=== PATIENT | female | born 1950 | race Caucasian/White ===

== ENCOUNTER 2017-05-05 11:11 | Day surgery (SDC) | payer MEDICARE, OTHER ==
[~2017-05-05 11:11] MED LIST: BUPIVACAINE HCL 0.75% INJ/PF (7.5 MG/1 ML) 10 ML SDV OD PRN; CHONDR SU A NA/HYALUR INTRAOC KIT (SURGICARE) ONE; KETOROLAC TROMETHAMINE 0.45% 4 DROP/0.4 ML DROPERETTE OD PRN; LIDOCAINE 1% INJ-PF (10 MG/ML) 30 ML SDV ONE; LIDOCAINE 4% INJ/PF (40 MG/ML) 5 ML AMPUL OD PRN; PHENYLEPHRINE/KETOROLAC 1%-0.3% 4 ML VIAL ONE
[2017-05-05] MEDS: TROPICAMIDE 1% OPH SOLN 3 ML OD PRN ×3 (11:39→12:03)
[2017-05-05] MEDS: CYCLOPENTOLATE 0.2%/PHENYLEPHRINE 1% OPH SOLN 2 ML OD PRN ×3 (11:39→12:03)
[2017-05-05] MEDS: BESIFLOXACIN HCL 0.6% OPH SUSP 5 ML BOTTLE OD PRN ×4 (11:41→12:36)
[2017-05-05] MEDS: TETRACAINE HCL 0.5% OPH SOLN 0.6 ML DROPERETTE OD PRN ×2 (11:41→12:04)
[2017-05-05] MEDS ORDERED: MIDAZOLAM 2 MG/2 ML INJ ONE (11:45)
--- NOTE | 2017-05-05 13:23 | [facility] OPERATIVE REPORT E ---
[facility] Operative Report NAME: ASPEN BAUGH AGE: 67Y DATE OF SURGERY: 05/05/2017 ROOM: PREOPERATIVE DIAGNOSIS: Cataract, right eye. POSTOPERATIVE DIAGNOSIS: Cataract, right eye. PROCEDURE PERFORMED: Phacoemulsification with posterior chamber intraocular lens, right eye. SURGEON: Ashley Bledsoe MD ANESTHESIA: Topical with MAC; 0.6 mL of 1% non-preserved lidocaine was injected in the eye following the incision. INDICATIONS FOR SURGERY: Status post vitrectomy surgery with rapid progression of cataracts and poor vision. Best corrected visual acuity 20/400. PROCEDURE: The patient was brought to the operating room and placed on the operative table. Following tetracaine drops, topical anesthesia was administered. This consisted of instrument wipe pledgets soaked in a solution of 4% Xylocaine mixed with 0.75% Marcaine in a 1:2 ratio. A 2 x 1 cm pledget was placed in the superior fornix. A 1 x 1 cm pledget was placed in the inferior fornix. The eye was patched shut for 5 minutes. The patch was removed. The eye was sterilely prepped and draped in the usual manner. Lid speculum was placed in the eye. The pledgets were removed. 4-0 black silk sutures were placed around the superior and the inferior rectus muscles to be used as traction. A conjunctival peritomy was made at the 10 o'clock position. Hemostasis was obtained with bipolar cautery. A posterior limbal groove was created using a crescent knife and dissected anteriorly towards the cornea. A sharp point blade was used to create a paracentesis site at the 2 o'clock position. A 2.4 mm keratome was used to enter the anterior chamber through the groove. Viscoelastic was injected into the anterior chamber. An anterior capsulotomy was performed using Utrata forceps in a capsulorrhexis fashion. Hydrodissection and hydrodelineation were performed. Phacoemulsification was performed in [id number] technique. Total phaco time 1 minute 2 seconds. Following this, the I/A unit was used to remove residual cortex. Viscoelastic was injected into the capsular bag. Intraocular lens model SN60WF, 13.5 diopters, serial number [id number] was placed in the capsular bag. The I/A unit was used to remove residual viscoelastic. The wound was seen to be watertight under high and low pressure, and no sutures were placed. The intraocular lens was well centered. The pressure was adjusted in the eye to normal pressure. The 4-0 black silk sutures and lid speculum were removed. The eye was shielded after Besivance drops were placed. The patient tolerated the procedure well and was sent to the recovery room in good condition. DICTATING PHYSICIAN: ASHLEY BLEDSOE M.D. [id number] PHY#: [id number] ID: [id number] JOB#: [id number] ACCT: [id number] cc:ASHLEY BLEDSOE M.D. >
--- NOTE | 2017-05-05 13:25 | [facility] DISCHARGE SUMMARY E ---
[facility] Discharge Summary NAME: ASPEN BAUGH AGE: 67Y ADMITTED: 05/05/2017 DISCHARGED: 05/05/2017 PREOPERATIVE DIAGNOSIS: Cataract, right eye. POSTOPERATIVE DIAGNOSIS: Cataract, right eye. HOSPITAL COURSE: The patient is a 67-year-old lady who underwent uneventful cataract extraction with intraocular lens implant, right eye, on 05/05/2017. She will be discharged to home. She was instructed to resume preoperative medications, take Tylenol as needed for discomfort, to keep her eye shielded, to use Besivance, Durezol, and Ilevro at 3 p.m. and 8 p.m., and to followup in my office in 1 day. DICTATING PHYSICIAN: ERIN BLEDSOE M.D. [id number] PHY#: [id number] ID: [id number] JOB#: [id number] ACCT: [id number] cc:ERIN BLEDSOE M.D. >
== END 2017-05-05 13:27 | disposition home or self-care (01) ==
LOC: SC 11:11
PROVIDERS: ATTEND Ophthalmology
PROC: 08RJ3JZ Replacement of Right Lens with Synthetic Substitute, Percutaneous Approach (ICD-10-PCS; principal; 2017-05-05 12:30)
DX: H25.811 Combined forms of age-related cataract, right eye (principal); F17.210 Nicotine dependence, cigarettes, uncomplicated; H57.03 Miosis; E11.9 Type 2 diabetes mellitus without complications; I10 Essential (primary) hypertension; Z79.82 Long term (current) use of aspirin; Z79.899 Other long term (current) drug therapy; Z85.3 Personal history of malignant neoplasm of breast
CPT/HCPCS: 66984; 82962; V2632; J2250; J3490 ×4; A9270; C9447; 142

== ENCOUNTER → 2018-03-02 | Outpatient (CLI) | payer MEDICARE, OTHER ==
--- NOTE | 2018-03-02 15:36 | RADIOLOGY REPORT (SQ) ---
EXAM DESCRIPTION: BARIUM ENEMA W/AIR COMPLETED DATE/TIME: 03/02/2018 11:10 am REASON FOR STUDY: STRICTURE OF COLON (K56.699) K56.699 OTHER INTESTNL OBST UNSP TO PARTIAL VERSU S COMPLE COMPARISON: CT ABDOMEN PELVIS 02/21/2010 FLUOROSCOPY TIME: 2.2 MINUTES 17 fluoroscopy images saved to PACS. TECHNIQUE: Following retrograde filling of the colon with barium and air, fluoroscopic spot and over head imaging of the colon was obtained and saved to PACS. LIMITATIONS: None. 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 CECUM: A few diverticula otherwise, normal mucosa without intraluminal filling defects, intrinsic or extrinsic masses, or lesions. ASCENDING COLON: A few diverticula otherwise, normal mucosa without intraluminal filling defects, int rinsic or extrinsic masses, or lesions. TRANSVERSE COLON: A few diverticula otherwise, normal mucosa without intraluminal filling defects, in trinsic or extrinsic masses, or lesions. DESCENDING COLON: Several diverticula otherwise, normal mucosa without intraluminal filling defects, intrinsic or extrinsic masses, or lesions. SIGMOID COLON: Marked diverticula with mild luminal narrowing. No delay in retrograde filling. No d efinite intraluminal filling defects, intrinsic or extrinsic masses, or lesions. RECTUM: Normal mucosa without intraluminal filling defects, intrinsic or extrinsic masses, or lesions . POST EVAC: Partial evacuation of barium with no additional findings. OTHER: No other significant finding. IMPRESSION: 1. MARKED DIVERTICULOSIS IN THE SIGMOID WITH MILD LUMINAL NARROWING. NO DELAY IN RETRO GRADE FILLING. 2. SCATTERED DIVERTICULOSIS THROUGHOUT REMAINING COLON. 3. NO LESIONS OR POLYPS. COMMENT: Quality ID [id number]: Final reports for procedures using fluoroscopy that document radiation exp osure indices, or exposure time and number of fluorographic images (if radiation exposure indices are not available) TECHNICAL DOCUMENTATION: JOB ID: [id number] 1943 [employer]- All Rights Reserved Reading location - IP/workstation name: [email or web address]
== END ==
LOC: RAD 09:35
PROVIDERS: ATTEND Internal Medicine Gastroenterology
DX: K56.699 Other intestinal obstruction unspecified as to partial versus complete obstruction (principal); K57.30 Diverticulosis of large intestine without perforation or abscess without bleeding
CPT/HCPCS: 74280

== ENCOUNTER → 2018-07-21 | Outpatient (CLI) | payer MEDICARE, OTHER ==
[2018-07-21 18:27] LABS: ABSOLUTE BASOPHILS # (AUTO) 0.1 10^3/uL (0.0-0.2); ABSOLUTE EOSINOPHILS # (AUTO) 0.3 10^3/uL (0.0-0.6); ABSOLUTE LYMPHOCYTES (AUTO) 1.7 10^3/uL (0.5-4.7); ABSOLUTE MONOCYTES (AUTO) 1.3 10^3/uL (0.1-1.4); ABSOLUTE NEUT (AUTO) 10.7 10^3/uL (1.7-8.2); ABSOLUTE RETICS # 0.095 10^6/uL (0.028-0.122); BASOPHILS % (AUTO) 0.4 % (0-2); EOSINOPHILS % (AUTO) 1.8 % (0-6); HEMATOCRIT 32.8 % (36.0-47.0); HEMOGLOBIN 10.9 g/dL (12.0-15.5); LYMPHOCYTES % (AUTO) 12.4 % (13-45); MEAN CORPUSCULAR HEMOGLOBIN 27.9 pg (27.0-33.4); MEAN CORPUSCULAR HGB CONC 33.2 g/dL (32.0-36.0); MEAN CORPUSCULAR VOLUME 84 fl (80-97); PLATELET COUNT 293 10^3/uL (150-450); RED CELL DISTRIBUTION WIDTH 14.7 % (11.5-14.0); RETICULOCYTE COUNT (AUTO) 2.44 % (0.66-2.85); SEGMENTED NEUTROPHILS % (AUTO) 76.4 % (42-78); TOTAL CELLS COUNTED % (AUTO) 100 %
[2018-07-21 19:05] LABS: ERYTHROCYTE SEDIMENTATION RATE 65 mm/hr (0-30)
[2018-07-21 19:15] LABS: C-REACTIVE PROTEIN 159.4 mg/L (<10.0)
[2018-07-21 19:38] LABS: ALANINE AMINOTRANSFERASE 155 U/L (9-52); ALBUMIN 3.3 g/dL (3.5-5.0); ALKALINE PHOSPHATASE 269 U/L (38-126); ANION GAP 12 (5-19); ASPARTATE AMINO TRANSFERASE 135 U/L (14-36); BILIRUBIN,DIRECT 1.8 mg/dL (0.0-0.4); BILIRUBIN,TOTAL 2.1 mg/dL (0.2-1.3); BLOOD UREA NITROGEN 14 mg/dL (7-20); CALCIUM 10.1 mg/dL (8.4-10.2); CARBON DIOXIDE 25 mmol/L (22-30); CHLORIDE 102 mmol/L (98-107); GAMMA-GLUTAMYL TRANSFERASE 777 U/L (8-78); GLUCOSE 192 mg/dL (75-110); IRON(TIBC) 31.9 ug/dL (37-170); POTASSIUM 4.1 mmol/L (3.6-5.0); SODIUM 138.5 mmol/L (137-145); TOTAL PROTEIN 6.4 g/dL (6.3-8.2)
[2018-07-21 20:36] LABS: CREATINE KINASE < 20 U/L (30-135)
[2018-07-23 11:40] LABS: HEPATITIS A AB IGM Negative (Negative); HEPATITIS B CORE AB IGM Negative (Negative); HEPATITS B SURFACE ANTIGEN Negative (Negative)
[2018-07-23 15:33] LABS: HEPATITIS C VIRUS ANTIBODY <0.1 s/co ratio (0.0-0.9)
== END ==
LOC: LAB 17:40
PROVIDERS: ATTEND Family Medicine
DX: E83.42 Hypomagnesemia (principal); D72.829 Elevated white blood cell count, unspecified; R94.5 Abnormal results of liver function studies; D64.9 Anemia, unspecified
CPT/HCPCS: 36415; 80053; 80074; 82550; 82607; 82728; 82746; 82977; 83540; 83550; 83735; 84443; 84466; 85025; 85045; 85652; 86140

== ENCOUNTER → 2018-07-21 | Outpatient (CLI) | payer MEDICARE, OTHER ==
--- NOTE | 2018-07-21 19:56 | RADIOLOGY REPORT (SQ) ---
EXAM DESCRIPTION: CT ABD/PELVIS WITH IV ORAL COMPLETED DATE/TIME: 07/21/2018 7:25 pm REASON FOR STUDY: R10.9 UNSPECIFIED ABDOMINAL PAIN R10.9 UNSPECIFIED ABDOMINAL PAIN COMPARISON: None. TECHNIQUE: CT scan of the abdomen and pelvis performed using helical scanning technique with dynamic intravenous contrast injection. Oral contrast. Images reviewed with lung, soft tissue, and bone win dows. Reconstructed coronal and sagittal MPR images reviewed. Delayed images for evaluation of the ur inary system also acquired. All images stored on PACS. All CT scanners at this facility use dose modulation, iterative reconstruction, and/or weight based d osing when appropriate to reduce radiation dose to as low as reasonably achievable (ALARA). [facility]: Dose Right [facility]: CareDose [facility]: Dose Right [facility]: Teradose 4D [facility]: Scaffold CONTRAST TYPE AND DOSE: contrast/concentration: Isovue 350.00 mg/ml; Total Contrast Delivered: 99.0 ml; Total Saline Delivered: 60.0 ml RENAL FUNCTION: BUN 30 creatinine 0.4 RADIATION DOSE: CT Rad equipment meets quality standard of care and radiation dose reduction techniq ues were employed. CTDIvol: 13.2 - 17.2 mGy. DLP: 1631 mGy-cm.. LIMITATIONS: None. FINDINGS: LOWER CHEST: No significant findings. No nodules or infiltrates. LIVER: Low-density lesions are present in the liver that are too numerous to count. SPLEEN: Normal size. No focal lesions. PANCREAS: There is a 37 mm somewhat thick-walled cystic lesion associated with the tail of the pancre as. GALLBLADDER: Contracted. No stones are seen. ADRENAL GLANDS: No significant masses or asymmetry. RIGHT KIDNEY AND URETER: No solid masses. Nonobstructing lower calyceal calculus. No hydronephros is or hydroureter. LEFT KIDNEY AND URETER: No solid masses. No significant calcifications. No hydronephrosis or hydr oureter. AORTA AND VESSELS: No aneurysm. No dissection. Renal arteries, SMA, celiac without stenosis. RETROPERITONEUM: No retroperitoneal adenopathy, hemorrhage or masses. BOWEL AND PERITONEAL CAVITY: Extensive sigmoid diverticulosis with no acute inflammation. APPENDIX: Normal. PELVIS: Calcified uterine fibroids. Urinary bladder is normal. ABDOMINAL WALL: No masses. No hernias. BONES: No significant or acute findings. OTHER: No other significant finding. IMPRESSION: 1. Metastatic disease in the liver. 2. There is a 37 mm somewhat thick-walled cystic lesion associated with the tail of the pancreas. C oncerning for neoplasm. 3. Diverticulosis coli. 4. Other findings as described. TECHNICAL DOCUMENTATION: JOB ID: [id number] Quality ID # [id number]: Final reports with documentation of one or more dose reduction techniques (e.g., Au tomated exposure control, adjustment of the mA and/or kV according to patient size, use of iterative reconstruction technique) 2010 [employer]- All Rights Reserved Reading location - IP/workstation name: [email or web address]
== END ==
LOC: RAD 19:13
PROVIDERS: ATTEND Family Medicine
DX: K57.30 Diverticulosis of large intestine without perforation or abscess without bleeding (principal); D25.9 Leiomyoma of uterus, unspecified; R10.9 Unspecified abdominal pain
CPT/HCPCS: 74177

== ENCOUNTER 2018-07-29 10:11 | Inpatient (IN) | payer MEDICARE, OTHER ==
--- NOTE | 2018-07-29 10:32 | ER Document Report ---
ED Medical Screen (RME) - General Chief Complaint: Abdominal Pain Stated Complaint: ABDOMINAL PAIN, DARK URINE Notes: 68-year-old female patient with abdominal pain, sweats, tremors, and dark urine. She recently had lab work showing markedly elevated liver function test , and a CT scan on 07/21/2018 showing a mass in the tail the pancreas. I have greeted and performed a rapid initial assessment of this patient. A comprehensive ED assessment and evaluation of the patient, analysis of test results and completion of the medical decision making process will be conducted by additional ED providers. TRAVEL OUTSIDE OF THE [place] IN LAST 30 DAYS: No - Related Data Allergies/Adverse Reactions: No Known Allergies Allergy (Verified 07/29/18 10:12) Past Medical History - Past Medical History Cardiac Medical History: Reports: Hx Hypercholesterolemia, Hx Hypertension Denies: Hx Heart Attack Pulmonary Medical History: Reports: Hx COPD Denies: Hx Asthma, Hx Bronchitis, Hx Pneumonia Neurological Medical History: Denies: Hx Cerebrovascular Accident, Hx Seizures Endocrine Medical History: Reports: Hx Diabetes Mellitus Type 2 Malignancy Medical History: Reports: Hx Breast Cancer - right mastectomy 2008 GI Medical History: Denies: Hx Hepatitis, Hx Hiatal Hernia, Hx Ulcer Infectious Medical History: Denies: Hx Hepatitis Past Surgical History: Reports: Hx Mastectomy. Denies: Hx Hysterectomy, Hx Open Heart Surgery, Hx Pacemaker - Immunizations Hx Diphtheria, Pertussis, Tetanus Vaccination: Yes Physical Exam - Vital signs Vitals: Temp Pulse Resp BP Pulse Ox 97.7 F 117 H 16 105/46 L 95 07/29/18 10:23 07/29/18 10:23 07/29/18 10:23 07/29/18 10:23 07/29/18 10:23 Course - Vital Signs Vital signs: Temp Pulse Resp BP Pulse Ox 97.7 F 117 H 16 105/46 L 95 07/29/18 10:23 07/29/18 10:23 07/29/18 10:23 07/29/18 10:23 07/29/18 10:23 Doctor's Discharge - Discharge Referrals: MANUEL BO MD [Primary Care Provider] - Follow up as needed
[2018-07-29] MEDS ORDERED: NORMAL SALINE 1000 ML 1,000 ML IV PRN (10:54)
--- NOTE | 2018-07-29 10:58 | ER Document Report ---
ED GI/ - General Chief Complaint: Abdominal Pain Stated Complaint: ABDOMINAL PAIN, DARK URINE Time Seen by Provider: 07/29/18 10:34 Mode of Arrival: Ambulatory Information source: Patient Notes: Chief complaint: abdominal pain: History of complain:( obtained from----patient) 68 years old female presents today with abdominal pain over the right upper quadrant and discoloration of the skin. Nauseous and unable to eat anything due to nausea. Continuous fever for the last 2-3 days. According to the whole symptoms started 2 months ago. Had a CT scan done in June latter part which showed pancreatic tumor with metastases to the liver. Onset: As above Duration: As above Severity: Moderate to severe Quality:dull Context: Pancreatic tumor Exacerbating factor and relieving factors: REVIEW OF SYSTEMS: CONSTITUTIONAL : Denies fever, chills, or sweats. Denies recent illness. EENT: Denies eye, ear, throat, or mouth pain or symptoms. Denies nasal or sinus congestion or discharge. Denies throat, tongue, or mouth swelling or difficulty swallowing. CARDIOVASCULAR: Denies chest pain. Denies palpitations or racing or irregular heart beat. Denies ankle edema. RESPIRATORY: Denies cough, cold, or chest congestion. Denies shortness of breath, difficulty breathing, or wheezing. GASTROINTESTINAL: GENITOURINARY: Denies difficulty urinating, painful urination, burning, frequency, blood in urine, or discharge. FEMALE GENITOURINARY: Denies vaginal bleeding, heavy or abnormal periods, irregular periods. Denies vaginal discharge or odor. MUSCULOSKELETAL: Denies back or neck pain or stiffness. Denies joint pain or swelling. SKIN: Denies rash, lesions or sores. HEMATOLOGIC : Denies easy bruising or bleeding. LYMPHATIC: Denies swollen, enlarged glands. NEUROLOGICAL: Denies confusion or altered mental status. Denies passing out or loss of consciousness. Denies dizziness or lightheadedness. Denies headache. Denies weakness or paralysis or loss of use of either side. Denies problems with gait or speech. Denies sensory loss, numbness, or tingling. Denies seizures. PSYCHIATRIC: Denies anxiety or stress. Denies depression, suicidal ideation, or homicidal ideation. ALL OTHER SYSTEMS REVIEWED AND NEGATIVE. PHYSICAL EXAMINATION: GENERAL: Well-appearing, well-nourished and in mild to moderate acute distress. Jaundiced HEAD: Atraumatic, normocephalic. EYES: Pupils equal round and reactive to light, extraocular movements intact, conjunctiva are icteric. ENT: Nares patent, oropharynx clear without exudates. Moist mucous membranes. NECK: Normal range of motion, supple without lymphadenopathy LUNGS: Breath sounds clear to auscultation bilaterally and equal. No wheezes rales or rhonchi. HEART: Regular rate and rhythm without murmurs ABDOMEN: Soft, right upper quadrant tenderness, nondistended abdomen. No guarding, no rebound. No masses appreciated. Female : deferred Musculoskeletal: Normal range of motion, no pitting or edema. No cyanosis. NEUROLOGICAL: Cranial nerves grossly intact. Normal speech, normal gait. Normal sensory, motor exams PSYCH: Normal mood, normal affect. SKIN: Warm, Dry, normal turgor, icteric Dictation was performed using [employer] voice recognition software TRAVEL OUTSIDE OF THE [place] IN LAST 30 DAYS: No - HPI Notes: 07/29/18 10:57 sharp - Related Data Allergies/Adverse Reactions: No Known Allergies Allergy (Verified 07/29/18 10:12) Past Medical History - Social History Smoking Status: Current Every Day Smoker Chew tobacco use (# tins/day): No Frequency of alcohol use: None Drug Abuse: None Lives with: Family Family History: Reviewed & Not Pertinent, CAD, DM, Hypertension, Other - [facility] cancer Patient has suicidal ideation: No Patient has homicidal ideation: No - Past Medical History Cardiac Medical History: Reports: Hx Hypercholesterolemia, Hx Hypertension Denies: Hx Heart Attack Pulmonary Medical History: Reports: Hx COPD Denies: Hx Asthma, Hx Bronchitis, Hx Pneumonia Neurological Medical History: Denies: Hx Cerebrovascular Accident, Hx Seizures Endocrine Medical History: Reports: Hx Diabetes Mellitus Type 2 Renal/ Medical History: Denies: Hx Peritoneal Dialysis Malignancy Medical History: Reports: Hx Breast Cancer - right mastectomy 2009 GI Medical History: Denies: Hx Hepatitis, Hx Hiatal Hernia, Hx Ulcer Infectious Medical History: Denies: Hx Hepatitis Past Surgical History: Reports: Hx Mastectomy. Denies: Hx Hysterectomy, Hx Open Heart Surgery, Hx Pacemaker - Immunizations Hx Diphtheria, Pertussis, Tetanus Vaccination: Yes Hx Pneumococcal Vaccination: 10/26/11 Review of Systems - Review of Systems Notes: trudi Physical Exam - Vital signs Vitals: Temp Pulse Resp BP Pulse Ox 97.7 F 117 H 16 105/46 L 95 10/04/18 10:23 07/29/18 10:23 07/29/18 10:23 07/29/18 10:23 07/29/18 10:23 - Notes Notes: Dictated Course - Re-evaluation Re-evalutation: 07/29/18 14:37 Her diagnosis was communicated with her, and also case was discussed with the hospital service and currently she is being admitted. - Vital Signs Vital signs: Temp Pulse Resp BP Pulse Ox 97.7 F 117 H 16 105/46 L 95 07/29/18 10:23 07/29/18 10:23 07/29/18 10:23 07/29/18 10:23 07/29/18 10:23 - Laboratory Result Diagrams: 07/29/18 10:30 07/29/18 10:30 Laboratory results interpreted by me: 07/29/18 07/29/18 07/29/18 10:30 10:30 12:33 WBC 18.3 H RBC 3.59 L Hgb 10.1 L Hct 30.5 L RDW 16.0 H Seg Neuts % (Manual) 83 H Lymphocytes % (Manual) 6 L Abs Neuts (Manual) 15.7 H Glucose 188 H Magnesium 1.1 L* Total Bilirubin 8.0 H Direct Bilirubin 7.1 H AST 202 H ALT 158 H Alkaline Phosphatase 377 H Creatine Kinase 23 L Total Protein 6.1 L Albumin 2.9 L Urine Protein 100 H Urine Glucose (UA) 50 H Urine Bilirubin MODERATE H Urine Urobilinogen 4.0 H Ur Leukocyte Esterase SMALL H - Diagnostic Test Radiology reviewed: Reports reviewed - Abdominal ultrasound reported by radiologist as metastatic lesions in the liver Earlier CAT scan showed tumor in the head of the pancreas - EKG Interpretation by Me EKG shows normal: Sinus rhythm - At the rate of 100 bpm normal axis no acute ST elevation ST depression T wave inversion noted. Discharge - Discharge Clinical Impression: Jaundice, Pancreatic cancer metastasized to liver Abdominal pain Qualifiers: Abdominal location: right upper quadrant Qualified Code(s): R10.11 - Right upper quadrant pain Condition: Fair Disposition: ADMITTED INPATIENT Admitting Provider: Hospitalist Unit Admitted: Telemetry Referrals: MANUEL BO MD [Primary Care Provider] - Follow up as needed
[2018-07-29 11:08] LABS: HEMATOCRIT 30.5 % (36.0-47.0); HEMOGLOBIN 10.1 g/dL (12.0-15.5); MEAN CORPUSCULAR HEMOGLOBIN 28.3 pg (27.0-33.4); MEAN CORPUSCULAR HGB CONC 33.2 g/dL (32.0-36.0); MEAN CORPUSCULAR VOLUME 85 fl (80-97); PLATELET COUNT 285 10^3/uL (150-450); RED BLOOD COUNT 3.59 10^6/uL (3.72-5.28); WHITE BLOOD COUNT 18.3 10^3/uL (4.0-10.5)
[2018-07-29 11:25] LABS: ALANINE AMINOTRANSFERASE 158 U/L (9-52); ALBUMIN 2.9 g/dL (3.5-5.0); ALKALINE PHOSPHATASE 377 U/L (38-126); ANION GAP 14 (5-19); ASPARTATE AMINO TRANSFERASE 202 U/L (14-36); BILIRUBIN,DIRECT 7.1 mg/dL (0.0-0.4); BLOOD UREA NITROGEN 17 mg/dL (7-20); CALCIUM 9.5 mg/dL (8.4-10.2); CARBON DIOXIDE 22 mmol/L (22-30); CHLORIDE 101 mmol/L (98-107); CREATINE KINASE 23 U/L (30-135); GLUCOSE 188 mg/dL (75-110); LIPASE 219.3 U/L (23-300); POTASSIUM 4.4 mmol/L (3.6-5.0); SODIUM 137.2 mmol/L (137-145); TOTAL PROTEIN 6.1 g/dL (6.3-8.2)
[2018-07-29 11:33] LABS: ABSOLUTE LYMPHOCYTES# (MANUAL) 1.1 10^3/uL (0.5-4.7); ABSOLUTE MONOCYTES # (MANUAL) 1.1 10^3/uL (0.1-1.4); ABSOLUTE NEUTROPHILS# (MANUAL) 15.7 10^3/uL (1.7-8.2); BAND NEUTROPHILS % (MANUAL) 3 % (3-5); BASOPHILS % (MANUAL) 0 % (0-2); EOSINOPHILS % (MANUAL) 2 % (0-6); LYMPHOCYTES % (MANUAL) 6 % (13-45); MONOCYTES % (MANUAL) 6 % (3-13); PLATELET CLUMPS PRESENT; SEGMENTED NEUTROPHILS % (MAN) 83 % (42-78); TOTAL CELLS COUNTED 100; TOXIC GRANULATION SLIGHT
[2018-07-29 11:34] LABS: ANISOCYTOSIS 1+; HYPOCHROMASIA 1+; POLYCHROMASIA 1+; STOMATOCYTES 2+; TARGET CELLS SLIGHT
[2018-07-29] MEDS ORDERED: MAGNESIUM SULFATE 4 GM/100 ML RTUPB IV ONE (11:54)
--- NOTE | 2018-07-29 12:45 | RADIOLOGY REPORT (SQ) ---
EXAM DESCRIPTION: U/S ABDOMEN LIMITED W/O DOP COMPLETED DATE/TIME: 07/29/2018 12:29 pm REASON FOR STUDY: Jaundiced COMPARISON: CT abdomen and pelvis 02/21/2010, 07/21/2018 TECHNIQUE: Dynamic and static grayscale images acquired of the abdomen and recorded on PACS. Additio nal selected color Doppler and spectral images recorded. LIMITATIONS: Midline bowel gas, body habitus FINDINGS: PANCREAS: Pancreatic tail mass seen on 07/21/2018 CT exam is difficult to visualize on toda y's ultrasound exam due to bowel gas. No focal findings at the pancreatic head. LIVER: Mildly enlarged, multiple liver masses are present worrisome for metastatic disease. LIVER VASCULATURE: Normal directional flow of the main portal vein and hepatic veins. GALLBLADDER: Contracted, no gross gallstones ULTRASOUND-DETECTED MARVIN'S SIGN: Negative. INTRAHEPATIC DUCTS AND COMMON DUCT: Not well seen INFERIOR VENA CAVA: Not well seen AORTA: No aneurysm. RIGHT KIDNEY: Normal size. Normal echogenicity. No solid or suspicious masses. No hydronephrosis. No calcifications. PERITONEAL AND RIGHT PLEURAL SPACE: Trace right upper quadrant ascites OTHER: No other significant findings. IMPRESSION: Contracted gallbladder not well seen. Multiple liver masses are present worrisome for metastatic disease Pancreatic tail mass seen on CT exam 07/21/2018 is not apparent by ultrasound due to bowel gas shadowi ng today TECHNICAL DOCUMENTATION: JOB ID: [id number]- All Rights Reserved Reading location - IP/workstation name: [email or web address]
[2018-07-29 13:11] LABS: APPEARANCE,URINE CLOUDY; BILIRUBIN,URINE MODERATE (NEGATIVE); COLOR,URINE AMBER; GLUCOSE, URINE 50 mg/dL (NEGATIVE); KETONES,URINE NEGATIVE (NEGATIVE); LEUKOCYTE ESTERASE,URINE SMALL (NEGATIVE); NITRITE,URINE NEGATIVE (NEGATIVE); PROTEIN,URINE 100 mg/dL (NEGATIVE); URINE SPECIFIC GRAVITY 1.033
[2018-07-29] MEDS ORDERED: LIDOCAINE 5% (700 MG) TRANSDERMAL ADH..PATCH TP ONE (14:26)
[2018-07-29] MEDS ORDERED: PROMETHAZINE HCL 25 MG SUPP.RECT PR PRN (14:41)
[2018-07-29] MEDS ORDERED: MAGNESIUM HYDROXIDE SUSP 30 ML UDCUP PO PRN (14:41)
[2018-07-29] MEDS ORDERED: MAG HYDROX/AL HYDROX/SIMETH SUSP 30 ML UDCUP PO PRN (14:41)
[2018-07-29] MEDS ORDERED: TEMAZEPAM 15 MG CAPSULE PO PRN (14:41)
[2018-07-29] MEDS ORDERED: MORPHINE SULFATE IR 30 MG TABLET PO ONE (16:00)
[2018-07-29] MEDS ORDERED: MORPHINE SULFATE IR 15 MG TABLET PO PRN (16:00)
[2018-07-29] MEDS ORDERED: MORPHINE SULFATE 10 MG/ML INJ IV PRN (16:09)
[2018-07-29] MEDS ORDERED: NALOXONE HCL INJ 2 MG/2 ML DISP.SYRIN IV PRN (16:14)
[2018-07-29] MEDS ORDERED: BISACODYL 10 MG SUPP.RECT PR PRN (16:21)
[2018-07-29] MEDS ORDERED: BISACODYL 5 MG TABEC PO PRN (16:21)
[2018-07-29] MEDS: METOCLOPRAMIDE HCL 10 MG TABLET PO SCH ×2 (16:34→21:40)
--- NOTE | 2018-07-29 17:19 | PDOC H&P ---
History of Present Illness Admission Date/PCP: 07/29/18 14:32 MANUEL BO MD Patient complains of: Abdominal pain History of Present Illness: ASPEN BAUGH is a 68 year old female who presented to the emergency room from her home with a 2-month history of gradually increasing right upper quadrant abdominal pain. She indicates that the pain is a nonradiating, constantly present, waxing and waning, moderate to severe, dull, aching, pressure, in the epigastrium and right upper quadrant of her abdomen. She has not identified any aggravating or ameliorating factors for her pain and denies prior similar episodes. She admits that her pain has been accompanied by nausea since its onset 2 months ago and the nausea like the pain has gradually increased over time. Additionally her pain has been accompanied recently by a yellowish discoloration of her skin as well as diaphoresis especially worse at night for the last several days. She has had a sensation of fever although no measurable elevation of her temperature. Her appetite has been somewhat decreased due to the nausea and she also admits that she has not been drinking very much fluid. She admits that she had a recent CAT scan which "showed a tumor on the pancreas and some spots on the liver". 07/29/2018: In the emergency room she was treated with IV fluids, IV antiemetics and IV opiate analgesics. She was subsequently admitted for pain and nausea control, oncology evaluation and appropriate disposition in accordance with her wishes for the remainder of her life. This will be accomplished by a consultation with Dr. Vasquez, hospitalist titration of her opiate pain medications and antiemetics for most effective dosing and a social media strategist consultation for discharge management. Past Medical History Cardiac Medical History: Reports: Hyperlipidema, Hypertension Denies: Atrial Fibrillation, Congestive Heart Failure, Coronary Artery Disease, DVT, Myocardial Infarction, Peripheral Vascular Disease, Pulmonary Embolism, Heart Murmur Pulmonary Medical History: Reports: Chronic Obstructive Pulmonary Disease (COPD) Denies: Asthma, Bronchitis, Pneumonia, Tuberculosis EENT Medical History: Reports: None Neurological Medical History: Denies: Hemorrhagic CVA, Ischemic CVA, Migraine, Multiple Sclerosis, Seizures Endocrine Medical History: Reports: Diabetes Mellitus Type 2, Obesity Denies: Diabetes Mellitus Type 1, Gestational Diabetes, Hyperthyroidism, Hypothyroidism Renal/ Medical History: Denies: Chronic Kidney Disease, Nephrolithiasis Malignancy Medical History: Reports: Breast Cancer - right mastectomy 2008, Liver Cancer - Newly diagnosed, but came from pancreas, Pancreatic Cancer - Newly diagnosed Denies: Bone Cancer, Brain Cancer, Colorectal Cancer, Lung Cancer, Renal ( Kidney) Cancer GI Medical History: Denies: Cirrhosis, Crohn's Disease, Gastroesophageal Reflux Disease, Hepatitis, Hiatal Hernia, Peptic Ulcer Disease, Ulcerative Colitis Musculoskeltal Medical History: Denies: Arthritis, Fibromyalgia, Gout Skin Medical History: Denies: Eczema, Psoriasis Psychiatric Medical History: Reports: Depression Denies: Alcohol Dependency, General Anxiety Disorder, Substance Abuse Traumatic Medical History: Reports: None Hematology: Denies: Anemia, Sickle Cell Disease, Bleeding Tendencies Infectious Medical History: Reports: None Past Surgical History Past Surgical History: Reports: Mastectomy Denies: Amputation, Cholecystectomy, Gastric Bypass Surgery, Hysterectomy, Pacemaker, Splenectomy Social History Information Source: Patient Lives with: Family Smoking Status: Current Every Day Smoker - States she recently quit smoking but she was noted to be a current everyday smoker less than a week ago. Frequency of Alcohol Use: Occasional Hx Recreational Drug Use: No Hx Prescription Drug Abuse: No - Advance Directive Resuscitation Status: DO NOT RESUSCITATE and DO NOT INTUBATE Surrogate healthcare decision maker:: Family History Family History: CAD, DM, Hypertension, Malignancy, Other - stmoach cancer Parental Family History Reviewed: Yes Children Family History Reviewed: No Sibling(s) Family History Reviewed.: Yes Medication/Allergy Home Medications: Aspirin [Aspirin EC] 81 mg PO DAILY 07/29/18 Cholecalciferol (Vitamin D3) [Vitamin D3 1000 Unit Tablet] 1,000 unit PO DAILY 07/29/18 Dulaglutide [Trulicity] 0.75 mg SQ FR@1000 07/29/18 Lisinopril [Prinivil 10 mg Tablet] 10 mg PO DAILY 07/29/18 Lovastatin [Mevacor] 10 mg PO DAILY 07/29/18 Sertraline HCl [Zoloft 50 mg Tablet] 50 mg PO DAILY 07/29/18 Sitagliptin Phos/Metformin HCl [Janumet Xr 50-1,000 mg Tablet] 1 tab PO BID 02/10 Umeclidinium Brm/Vilanterol Tr [Anoro Ellipta 62.5-25 Mcg INH] 1 puff IH DAILY 07/29/18 Vitamin B Complex 1 tab PO DAILY 07/29/18 Allergies/Adverse Reactions: No Known Allergies Allergy (Verified 07/29/18 10:12) Review of Systems Eyes: ABSENT: visual disturbances, other - Ocular pain Ears: ABSENT: hearing changes, other - Ear pain Nose, Mouth, and Throat: ABSENT: mouth pain, sore throat, vertigo Cardiovascular: ABSENT: chest pain, dyspnea on exertion, edema, palpitations Respiratory: ABSENT: cough, dyspnea, hemoptysis Gastrointestinal: PRESENT: abdominal pain, bloating, constipation, diarrhea, nausea. ABSENT: coffee ground emesis, dysphagia, heartburn, hematemesis, hematochezia, melena, vomiting Genitourinary: ABSENT: difficulty urinating, dysuria, hematuria Musculoskeletal: ABSENT: back pain, deformity, joint swelling, muscle weakness Integumentary: PRESENT: diaphoresis. ABSENT: erythema, lesions, pruritus, rash Neurological: ABSENT: abnormal gait, abnormal movements, abnormal speech, confusion, convulsions, dizziness, focal weakness, frequent falls, lack of coordination, memory loss, numbness, paresthesias, restless legs, syncope, tingling, tremor(s), vertigo, weakness Psychiatric: PRESENT: depression. ABSENT: anxiety, hallucinations, suicidal ideation Endocrine: PRESENT: flushing - With frequent severe diaphoresis.. ABSENT: cold intolerance, heat intolerance, polydipsia, polyphagia, polyuria Hematologic/Lymphatic: ABSENT: easy bleeding, easy bruising Allergic/Immunologic: ABSENT: seasonal rhinorrhea, other - Insect bite allergies Physical Exam Vital Signs: Temp Pulse Resp BP Pulse Ox 97.7 F 117 H 26 H 118/54 L 97 07/29/18 10:23 07/29/18 10:23 07/29/18 14:00 07/29/18 12:00 07/29/18 14:00 Intake & Output 07/28/18 07/29/18 07/30/18 06:59 06:59 06:59 Intake Total 1000 Balance 1000 General appearance: PRESENT: no acute distress, cooperative, well-nourished Head exam: PRESENT: atraumatic, normocephalic Eye exam: PRESENT: EOMI, scleral icterus. ABSENT: conjunctival injection, nystagmus, periorbital swelling Ear exam: PRESENT: normal external ear exam. ABSENT: bleeding, drainage Mouth exam: PRESENT: moist, tongue midline Neck exam: PRESENT: full ROM. ABSENT: JVD, meningismus, tenderness, thyromegaly , tracheal deviation Respiratory exam: PRESENT: clear to auscultation kalin, symmetrical, unlabored Cardiovascular exam: PRESENT: RRR. ABSENT: bradycardia, clicks, diastolic murmur, gallop, rubs, systolic murmur, tachycardia Pulses: PRESENT: normal carotid pulses, normal radial pulses, normal dorsalis pedis pul Vascular exam: PRESENT: normal capillary refill. ABSENT: pallor GI/Abdominal exam: PRESENT: distended - Mildly distended, normal bowel sounds, soft, tenderness - Mild epigastric and right upper quadrant tenderness on deep palpation. ABSENT: mass, Reyes's sign, organolmegaly Rectal exam: PRESENT: deferred Extremities exam: ABSENT: joint swelling, pedal edema Musculoskeletal exam: PRESENT: full ROM, normal inspection Neurological exam: PRESENT: alert, awake, oriented to person, oriented to place , oriented to time, oriented to situation, reflexes normal, CN II-XII grossly intact. ABSENT: motor sensory deficit Psychiatric exam: PRESENT: appropriate affect, normal mood Skin exam: PRESENT: jaundice. ABSENT: rash, urticaria Results Laboratory Results: Noted abnormals include a leukocytosis of 18,000+, a moderately severe hypomagnesemia with a level of 1.1 and mildly elevated liver enzymes. EKG Comments: Sinus tachycardia with a rate of 100 bpm Impressions: Abdomen Ultrasound 07/29/18 10:53 IMPRESSION: Contracted gallbladder not well seen. Multiple liver masses are present worrisome for metastatic disease Pancreatic tail mass seen on CT exam 07/21/2018 is not apparent by ultrasound due to bowel gas shadowing today Assessment & Plan - Diagnosis (1) Abdominal pain Qualifiers: Abdominal location: right upper quadrant Qualified Code(s): R10.11 - Right upper quadrant pain Is this a current diagnosis for this admission?: Yes Plan: We will initiate a pain management plan for control of her abdominal pain and nausea. Will initially utilize MS Contin for baseline pain control, plus MS IR for breakthrough pain. A rescue dose of morphine sulfate that may be administered intravenously will be maintained for severe pain not responding to oral medications. Her nausea will be addressed with scheduled Reglan before meals and at bedtime combined scheduled with Pancreaze 10 before meals, and as needed Zofran and/or Phenergan. (2) Pancreatic cancer metastasized to liver Is this a current diagnosis for this admission?: Yes Plan: Dr. Vasquez will see the patient in consultation and advised for the most appropriate course forward. The patient does have an oncologist in [place] whom she is seen in the past for her breast cancer and has a pre-existing relationship due to the treatment and ongoing monitoring for that condition. (3) Hypomagnesemia Is this a current diagnosis for this admission?: Yes Plan: Patient's hypomagnesemia was addressed in the emergency room with a 4 g magnesium rider ordered. Her magnesium level will be followed on a regular basis during her hospital course, with additional magnesium repletion administered intravenously or orally as needed. (4) Diabetes mellitus type 2 in nonobese Is this a current diagnosis for this admission?: Yes Plan: The patient's diabetes mellitus is indeed a significant comorbidity but is currently in good control and therefore a continuation of her home regiment in addition to a consistent carbohydrate no concentrated sweets diet will be used as the initial therapy for her diabetes. Further intervention and/or treatment will be determined as needed. - Time Time Spent: Greater than 70 Minutes Medications reviewed and adjusted accordingly: Yes Anticipated discharge: Home, Home with Homehealth, Hospice, Other - Palliative care Within: Other - When abdominal pain and nausea have been brought into good control with oral medications and the patient is able to eat and drink as desired. Discharge planning will assist in assessing the patient's desires and choosing the most appropriate option available to her to achieve the desired ends of controlling her pain and nausea as well as giving her the best quality of life available.
[2018-07-29] MEDS: POTASSI CL 20 MEQ/1/2NS 1L 20 MEQ/1,000 ML RTUINJ IV PRN (17:33)
[2018-07-29] MEDS: DOCUSATE SODIUM 100 MG CAPSULE PO SCH (17:33)
[2018-07-29] MEDS ORDERED: (PENDING PHARMACY ID) (Sitagliptin Phos/Metformin Hcl [Janumet Xr 50-1,000 Mg Tablet] 1 TA PO SCH (18:00)
[2018-07-29] MEDS: LIPASE/PROTEASE/AMYLASE 1 CAP CAPSULE.DR PO SCH (18:09)
[2018-07-29] MEDS: ONDANSETRON 4 MG TAB.RAPDIS PO PRN (19:36)
--- NOTE | 2018-07-29 20:18 | EKG REPORT ---
SEVERITY:- OTHERWISE NORMAL ECG - SINUS TACHYCARDIA : Confirmed by: Cely Randall 29-Jul-2018 20:17:29
[2018-07-29] MEDS: FAMOTIDINE 20 MG TABLET PO SCH (21:40)
[2018-07-29] MEDS ORDERED: MORPHINE SULFATE SR 30 MG TABLET PO SCH (22:00)
[2018-07-30] MEDS: POTASSI CL 20 MEQ/1/2NS 1L 20 MEQ/1,000 ML RTUINJ IV PRN ×2 (03:23→16:31)
[2018-07-30 06:18] LABS: INTERNATIONAL RATION (INR) 1.12
[2018-07-30 06:19] LABS: PARTIAL THROMBOPLASTIN TIME 24.1 SEC (23.5-35.8)
[2018-07-30 06:27] LABS: ALANINE AMINOTRANSFERASE 148 U/L (9-52); ALBUMIN 2.7 g/dL (3.5-5.0); ALKALINE PHOSPHATASE 354 U/L (38-126); AMYLASE 83 U/L (30-110); ANION GAP 12 (5-19); ASPARTATE AMINO TRANSFERASE 197 U/L (14-36); BILIRUBIN,DIRECT 6.6 mg/dL (0.0-0.4); BILIRUBIN,TOTAL 7.5 mg/dL (0.2-1.3); BLOOD UREA NITROGEN 29 mg/dL (7-20); CALCIUM 8.5 mg/dL (8.4-10.2); CARBON DIOXIDE 22 mmol/L (22-30); CHLORIDE 103 mmol/L (98-107); GLUCOSE 142 mg/dL (75-110); PHOSPHORUS 5.6 mg/dL (2.5-4.5); POTASSIUM 4.7 mmol/L (3.6-5.0); SODIUM 136.6 mmol/L (137-145)
[2018-07-30 07:44] LABS: HEPATITIS A AB IGM Negative (Negative); HEPATITIS B CORE AB IGM Negative (Negative); HEPATITS B SURFACE ANTIGEN Negative (Negative)
[2018-07-30] MEDS ORDERED: MORPHINE SULFATE 10 MG/ML INJ IV PRN (08:13)
[2018-07-30] MEDS: LIPASE/PROTEASE/AMYLASE 1 CAP CAPSULE.DR PO SCH ×3 (08:14→16:36)
[2018-07-30] MEDS: METOCLOPRAMIDE HCL 10 MG TABLET PO SCH ×4 (08:14→22:13)
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
[2018-07-30] MEDS: MULTIVIT-STRESS FORMULA/ZINC TABLET PO SCH (09:51)
[2018-07-30] MEDS: FAMOTIDINE 20 MG TABLET PO SCH ×2 (09:51→22:13)
[2018-07-30] MEDS: MORPHINE SULFATE SR 15 MG TABLET PO SCH ×3 (09:51→22:13)
[2018-07-30] MEDS: SERTRALINE HCL 50 MG TABLET PO SCH (09:51)
[2018-07-30] MEDS: CHOLECALCIFEROL (D3) 1,000 UNIT TABLET PO SCH (09:51)
[2018-07-30] MEDS: DOCUSATE SODIUM 100 MG CAPSULE PO SCH ×3 (09:51→17:14)
[2018-07-30] MEDS ORDERED: (PENDING PHARMACY ID) (Dulaglutide [Trulicity] 0.75 MG) SQ SCH (10:00)
[2018-07-30] MEDS ORDERED: ASPIRIN 81 MG TABLET, ENT COATED PO SCH (10:00)
[2018-07-30] MEDS ORDERED: (PENDING PHARMACY ID) (Umeclidinium Brm/Vilanterol Tr [Anoro Ellipta 62.5-25 Mcg Inh] 1 PU IH SCH (10:00)
[2018-07-30] MEDS ORDERED: (PENDING PHARMACY ID) (Vitamin B Complex [Vitamin B Complex] 1 TAB) PO SCH (10:00)
[2018-07-30] MEDS ORDERED: (PENDING PHARMACY ID) (Lovastatin [Mevacor] 10 MG) PO SCH (10:00)
[2018-07-30] MEDS ORDERED: ENOXAPARIN SODIUM INJ 40 MG/0.4 ML DISP.SYRIN SUBCUT SCH (10:00)
[2018-07-30 10:08] LABS: HEMATOCRIT 26.7 % (36.0-47.0); MEAN CORPUSCULAR HEMOGLOBIN 31.6 pg (27.0-33.4); MEAN CORPUSCULAR HGB CONC 33.9 g/dL (32.0-36.0); PLATELET COUNT 233 10^3/uL (150-450); RED BLOOD COUNT 2.86 10^6/uL (3.72-5.28); RED CELL DISTRIBUTION WIDTH 16.2 % (11.5-14.0); WHITE BLOOD COUNT 17.6 10^3/uL (4.0-10.5)
[2018-07-30 10:51] LABS: MEAN CORPUSCULAR VOLUME 93 fl (80-97)
[2018-07-30 10:53] LABS: ABSOLUTE MONOCYTES # (MANUAL) 0.9 10^3/uL (0.1-1.4); ABSOLUTE NEUTROPHILS# (MANUAL) 13.7 10^3/uL (1.7-8.2); BAND NEUTROPHILS % (MANUAL) 3 % (3-5); BASOPHILS % (MANUAL) 0 % (0-2); EOSINOPHILS % (MANUAL) 0 % (0-6); LYMPHOCYTES % (MANUAL) 17 % (13-45); METAMYELOCYTES % (MANUAL) 1 % (0); MONOCYTES % (MANUAL) 5 % (3-13); SEGMENTED NEUTROPHILS % (MAN) 74 % (42-78); TOTAL CELLS COUNTED 100
[2018-07-30 10:54] LABS: ANISOCYTOSIS 1+; PLATELET COMMENT ADEQUATE; POIKILOCYTOSIS 2+; POLYCHROMASIA SLIGHT; STOMATOCYTES 2+; TARGET CELLS 1+
[2018-07-30 11:07] LABS: HEPATITIS C VIRUS ANTIBODY <0.1 s/co ratio (0.0-0.9)
[2018-07-30] MEDS: ONDANSETRON 4 MG TAB.RAPDIS PO PRN (12:32)
[2018-07-30] MEDS ORDERED: FENTANYL CITRATE INJ/PF 100 MCG/2 ML AMPUL ONE (13:55)
[2018-07-30] MEDS ORDERED: LIDOCAINE 1% INJ-PF (10 MG/ML) 30 ML SDV ONE (13:55)
[2018-07-30] MEDS ORDERED: MIDAZOLAM 2 MG/2 ML INJ ONE (13:55)
--- NOTE | 2018-07-30 14:49 | PDOC PROGRESS REPORT ---
Subjective Progress Note for:: 07/30/18 Subjective:: SHO BAUGH is a 68 year old female who presented to the emergency room from her home with a 2-month history of gradually increasing right upper quadrant abdominal pain. She indicates that the pain is a nonradiating, constantly present, waxing and waning, moderate to severe, dull, aching, pressure, in the epigastrium and right upper quadrant of her abdomen. She has not identified any aggravating or ameliorating factors for her pain and denies prior similar episodes. She admits that her pain has been accompanied by nausea since its onset 2 months ago and the nausea like the pain has gradually increased over time. Additionally her pain has been accompanied recently by a yellowish discoloration of her skin as well as diaphoresis especially worse at night for the last several days. She has had a sensation of fever although no measurable elevation of her temperature. Her appetite has been somewhat decreased due to the nausea and she also admits that she has not been drinking very much fluid. She admits that she had a recent CAT scan which "showed a tumor on the pancreas and some spots on the liver". 07/29/2018: In the emergency room she was treated with IV fluids, IV antiemetics and IV opiate analgesics. She was subsequently admitted for pain and nausea control, oncology evaluation and appropriate disposition in accordance with her wishes for the remainder of her life. This will be accomplished by a consultation with Dr. Vasquez, hospitalist titration of her opiate pain medications and antiemetics for most effective dosing and a nephrology social worker consultation for discharge management. 07/30/18: Sho is feeling a little bit better today she has been able to keep down all of her fluids and a little bit of solid food so far today. Her nausea seems to be somewhat decreased and she is having no significant pain at the present time. She will be undergoing a liver biopsy today as requested by Dr. Vasquez. Her examination shows little or no change and she will continue to receive supportive and symptomatic cares. Further adjustments in her analgesic and antiemetic regiment will be made as required. Reason For Visit: PANCREATIC CARCINOMA WITH HEPATIC METASTASES Physical Exam Vital Signs: Temp Pulse Resp BP Pulse Ox 98.0 F 73 16 100/37 L 98 07/30/18 11:45 07/30/18 11:45 07/30/18 11:45 07/30/18 11:45 07/30/18 11:45 Intake & Output 07/28/18 07/29/18 07/30/18 23:59 23:59 23:59 Intake Total 1100 1500 Balance 1100 1500 Weight 82.554 kg 82.1 kg General appearance: PRESENT: no acute distress, cooperative Head exam: PRESENT: atraumatic, normocephalic Eye exam: PRESENT: EOMI, scleral icterus. ABSENT: conjunctival injection, nystagmus, periorbital swelling Ear exam: PRESENT: normal external ear exam. ABSENT: bleeding, drainage Mouth exam: PRESENT: moist, tongue midline Neck exam: ABSENT: thyromegaly, tracheal deviation Respiratory exam: PRESENT: clear to auscultation kalin, symmetrical, unlabored Cardiovascular exam: PRESENT: RRR. ABSENT: clicks, diastolic murmur, gallop, rubs, systolic murmur Vascular exam: PRESENT: normal capillary refill. ABSENT: pallor GI/Abdominal exam: PRESENT: normal bowel sounds, soft, tenderness - Mild epigastric and right upper quadrant tenderness to palpation Rectal exam: PRESENT: deferred Extremities exam: ABSENT: joint swelling, pedal edema Musculoskeletal exam: PRESENT: full ROM, normal inspection Neurological exam: PRESENT: alert, awake, oriented to person, oriented to place , oriented to time, oriented to situation, CN II-XII grossly intact. ABSENT: motor sensory deficit Psychiatric exam: PRESENT: appropriate affect, depressed Skin exam: PRESENT: jaundice. ABSENT: rash, urticaria Results Laboratory Results: 07/30/18 09:45 07/30/18 05:47 07/30/18 07/30/18 07/30/18 05:47 05:47 05:47 WBC Cancelled RBC Cancelled Hgb Cancelled Hct Cancelled MCV Cancelled MCH Cancelled MCHC Cancelled RDW Cancelled Plt Count Cancelled Seg Neutrophils % Cancelled Lymphocytes % Cancelled Monocytes % Cancelled Eosinophils % Cancelled Basophils % Cancelled Absolute Neutrophils Cancelled Absolute Lymphocytes Cancelled Absolute Monocytes Cancelled Absolute Eosinophils Cancelled Absolute Basophils Cancelled Sodium 136.6 L Potassium 4.7 Chloride 103 Carbon Dioxide 22 Anion Gap 12 BUN 29 H Creatinine 1.27 H Est GFR ( Amer) 51 L Est GFR (Non-Af Amer) 42 L Glucose 142 H Calcium 8.5 Phosphorus 5.6 H Magnesium 2.1 D Total Bilirubin 7.5 H AST 197 H ALT 148 H Alkaline Phosphatase 354 H Ammonia < 8.7 L Total Protein 6.0 L Albumin 2.7 L Amylase 83 Lipase 245.0 TSH 07/30/18 07/30/18 07/30/18 05:47 07:05 09:45 WBC Cancelled 17.6 H RBC Cancelled 2.86 L Hgb Cancelled 9.0 L Hct Cancelled 26.7 L MCV Cancelled 93 D MCH Cancelled 31.6 MCHC Cancelled 33.9 RDW Cancelled 16.2 H Plt Count Cancelled 233 Seg Neutrophils % Cancelled Not Reportable Lymphocytes % Cancelled Not Reportable Monocytes % Cancelled Not Reportable Eosinophils % Cancelled Not Reportable Basophils % Cancelled Not Reportable Absolute Neutrophils Cancelled Not Reportable Absolute Lymphocytes Cancelled Not Reportable Absolute Monocytes Cancelled Not Reportable Absolute Eosinophils Cancelled Not Reportable Absolute Basophils Cancelled Not Reportable Sodium Potassium Chloride Carbon Dioxide Anion Gap BUN Creatinine Est GFR ( Amer) Est GFR (Non-Af Amer) Glucose Calcium Phosphorus Magnesium Total Bilirubin AST ALT Alkaline Phosphatase Ammonia Total Protein Albumin Amylase Lipase TSH 4.62 Impressions: Abdomen Ultrasound 07/29/18 10:53 IMPRESSION: Contracted gallbladder not well seen. Multiple liver masses are present worrisome for metastatic disease Pancreatic tail mass seen on CT exam 07/21/2018 is not apparent by ultrasound due to bowel gas shadowing today Assessment & Plan - Diagnosis (1) Abdominal pain Qualifiers: Abdominal location: right upper quadrant Qualified Code(s): R10.11 - Right upper quadrant pain Is this a current diagnosis for this admission?: Yes Plan: We will initiate a pain management plan for control of her abdominal pain and nausea. Will initially utilize MS Contin for baseline pain control, plus MS IR for breakthrough pain. A rescue dose of morphine sulfate that may be administered intravenously will be maintained for severe pain not responding to oral medications. Her nausea will be addressed with scheduled Reglan before meals and at bedtime combined scheduled with Pancreaze 10 before meals, and as needed Zofran and/or Phenergan. (2) Pancreatic cancer metastasized to liver Is this a current diagnosis for this admission?: Yes Plan: Dr. Vasquez has seen the patient in consultation and advised a liver biopsy which will be performed on 07/30/2015. Pending results of the liver biopsy we will continue supportive and symptomatic care and try to achieve good control of her nausea. The results of the liver biopsy do not need to be available prior to the patient's discharge once her symptoms have been controlled well. Once results of liver biopsy are available further advice for any treatment option can be provided by either Dr. Vasquez or her own oncologist in [place], whom she has seen in the past for her breast cancer and has a pre-existing relationship due to the treatment and ongoing monitoring for that condition. (3) Hypomagnesemia Is this a current diagnosis for this admission?: Yes Plan: Patient's hypomagnesemia was addressed in the emergency room with a 4 g magnesium rider ordered. Her magnesium level returned to normal by the following day. Her magnesium level will be followed on a regular basis during her hospital course, with additional magnesium repletion administered intravenously or orally as needed. (4) Diabetes mellitus type 2 in nonobese Is this a current diagnosis for this admission?: Yes Plan: The patient's diabetes mellitus is indeed a significant comorbidity but is currently in good control and therefore a continuation of her home regiment in addition to a consistent carbohydrate no concentrated sweets diet will be used as the initial therapy for her diabetes. Further intervention and/or treatment will be determined as needed. - Time Time Spent with patient: 35 or more minutes Medications reviewed and adjusted accordingly: Yes Anticipated discharge: Home Within: within 72 hours
--- NOTE | 2018-07-30 15:33 | RADIOLOGY REPORT (SQ) ---
EXAM DESCRIPTION: CT BIOPSY LIVER; CT NEEDLE PLACEMENT COMPLETED DATE/TIME: 07/30/2018 2:39 pm REASON FOR STUDY: Biopsy of Liver mets; BIOPSY OF LIVER METS COMPARISON: None. TECHNIQUE: After obtaining informed consent and explaining the risks and benefits of conscious sedat ion,the patient agreed to the procedure. The patient was brought to the CT suite and was placed supin e on the CT gurney. The patient was prepped and draped in the usual sterile fashion . Axial images w ere obtained for targeting of theposterior segment right lobe. An appropriate access site was selecte d. IV conscious sedation was administered and physician direction by the registered nurse using 1 mil ligrams of Versed and 100 micrograms of fentanyl. Physiologic monitoring was provided before, during, and after sedation. The total sedation time was 30 minutes. Documentation face to face time, the performing proceduralist, spent monitoring the patient: 10minute s. Noncontrasted CT of the liver was performed to localize an approach for the targeted liver biopsy. A percutaneous site was marked. Time out was performed. After skin prep and local lidocaine for skin and deep tissue anesthesia, a coaxial biopsy needle sys tem was used to obtain several cores of tissue from the targeted liver lesion. These were submitted to the lab in formalin. No immediate postprocedure complications. Total of [address] fluoro was used. 18 CT Fluoroscopic images were obtained and saved to PACS. All CT scanners at this facility use dose modulation, iterative reconstruction, and/or weight based d osing when appropriate to reduce radiation dose to as low as reasonably achievable (ALARA). [facility]: Dose Right [facility]: CareDose [facility]: Dose Right [facility]: Teradose 4D [facility]: [employer] RADIATION DOSE: CT Rad equipment meets quality standard of care and radiation dose reduction techniq ues were employed. CTDIvol: 4.0 - 20.2 mGy. DLP: 478 mGy-cm. mGy. LIMITATIONS: None. FINDINGS: CT guided liver biopsy as detailed above. IMPRESSION: CT GUIDED TARGETED LIVER BIOPSY PERFORMED ABOVE. PATHOLOGY PENDING. NO IMMEDIATE C OMPLICATIONS. COMMENT: Patient medication list reviewed:Yes- Quality ID# [id number]:Eligible professional attests to docu menting in the medical record they obtained, updated, or reviewed the patient's current medications.. Quality ID 145: Final reports for procedures using fluoroscopy that document radiation exposure jerald shanae, or exposure time and number of fluorographic images (if radiation exposure indices are not avail able) TECHNICAL DOCUMENTATION: JOB ID: [id number] Quality ID # [id number]: Final reports with documentation of one or more dose reduction techniques (e.g., A utomated exposure control, adjustment of the mA and/or kV according to patient size, use of iterative reconstruction technique) 2010 [employer]- All Rights Reserved Reading location - IP/workstation name: [facility]
--- NOTE | 2018-07-30 15:33 | RADIOLOGY REPORT (SQ) ---
EXAM DESCRIPTION: CT BIOPSY LIVER; CT NEEDLE PLACEMENT COMPLETED DATE/TIME: 07/30/2018 2:39 pm REASON FOR STUDY: Biopsy of Liver mets; BIOPSY OF LIVER METS COMPARISON: None. TECHNIQUE: After obtaining informed consent and explaining the risks and benefits of conscious sedat ion,the patient agreed to the procedure. The patient was brought to the CT suite and was placed supin e on the CT gurney. The patient was prepped and draped in the usual sterile fashion . Axial images w ere obtained for targeting of theposterior segment right lobe. An appropriate access site was selecte d. IV conscious sedation was administered and physician direction by the registered nurse using 1 mil ligrams of Versed and 100 micrograms of fentanyl. Physiologic monitoring was provided before, during, and after sedation. The total sedation time was 30 minutes. Documentation face to face time, the performing proceduralist, spent monitoring the patient: 10minute s. Noncontrasted CT of the liver was performed to localize an approach for the targeted liver biopsy. A percutaneous site was marked. Time out was performed. After skin prep and local lidocaine for skin and deep tissue anesthesia, a coaxial biopsy needle sys tem was used to obtain several cores of tissue from the targeted liver lesion. These were submitted to the lab in formalin. No immediate postprocedure complications. Total of [address] fluoro was used. 18 CT Fluoroscopic images were obtained and saved to PACS. All CT scanners at this facility use dose modulation, iterative reconstruction, and/or weight based d osing when appropriate to reduce radiation dose to as low as reasonably achievable (ALARA). [facility]: Dose Right [facility]: CareDose [facility]: Dose Right [facility]: Teradose 4D [facility]: [employer] RADIATION DOSE: CT Rad equipment meets quality standard of care and radiation dose reduction techniq ues were employed. CTDIvol: 4.0 - 20.2 mGy. DLP: 478 mGy-cm. mGy. LIMITATIONS: None. FINDINGS: CT guided liver biopsy as detailed above. IMPRESSION: CT GUIDED TARGETED LIVER BIOPSY PERFORMED ABOVE. PATHOLOGY PENDING. NO IMMEDIATE C OMPLICATIONS. COMMENT: Patient medication list reviewed:Yes- Quality ID# [id number]:Eligible professional attests to docu menting in the medical record they obtained, updated, or reviewed the patient's current medications.. Quality ID 145: Final reports for procedures using fluoroscopy that document radiation exposure jerald shanae, or exposure time and number of fluorographic images (if radiation exposure indices are not avail able) TECHNICAL DOCUMENTATION: JOB ID: [id number] Quality ID # [id number]: Final reports with documentation of one or more dose reduction techniques (e.g., A utomated exposure control, adjustment of the mA and/or kV according to patient size, use of iterative reconstruction technique) 2010 [employer]- All Rights Reserved Reading location - IP/workstation name: [facility]
[2018-07-30] MEDS: MORPHINE SULFATE IR 15 MG TABLET PO PRN (18:52)
[2018-07-30] MEDS ORDERED: SIMVASTATIN 10 MG TABLET PO SCH (22:00)
[2018-07-31] MEDS: POTASSI CL 20 MEQ/1/2NS 1L 20 MEQ/1,000 ML RTUINJ IV PRN (01:30)
[2018-07-31 06:25] LABS: HEMATOCRIT 27.1 % (36.0-47.0); HEMOGLOBIN 9.2 g/dL (12.0-15.5)
[2018-07-31 06:37] LABS: MEAN CORPUSCULAR HEMOGLOBIN 31.9 pg (27.0-33.4); MEAN CORPUSCULAR HGB CONC 33.9 g/dL (32.0-36.0); MEAN CORPUSCULAR VOLUME 94 fl (80-97); PLATELET COUNT 196 10^3/uL (150-450); RED BLOOD COUNT 2.88 10^6/uL (3.72-5.28); RED CELL DISTRIBUTION WIDTH 16.3 % (11.5-14.0); WHITE BLOOD COUNT 18.7 10^3/uL (4.0-10.5)
[2018-07-31 06:56] LABS: ABSOLUTE LYMPHOCYTES# (MANUAL) 1.5 10^3/uL (0.5-4.7); ABSOLUTE MONOCYTES # (MANUAL) 2.6 10^3/uL (0.1-1.4); ABSOLUTE NEUTROPHILS# (MANUAL) 14.4 10^3/uL (1.7-8.2); BAND NEUTROPHILS % (MANUAL) 1 % (3-5); BASOPHILS % (MANUAL) 0 % (0-2); EOSINOPHILS % (MANUAL) 1 % (0-6); LYMPHOCYTES % (MANUAL) 8 % (13-45); METAMYELOCYTES % (MANUAL) 1 % (0); MONOCYTES % (MANUAL) 14 % (3-13); SEGMENTED NEUTROPHILS % (MAN) 75 % (42-78); TOTAL CELLS COUNTED 100
[2018-07-31 06:59] LABS: ANISOCYTOSIS 1+; PLATELET COMMENT ADEQUATE; POLYCHROMASIA SLIGHT; TARGET CELLS SLIGHT; TOXIC VACUOLATION PRESENT
[2018-07-31] MEDS: METOCLOPRAMIDE HCL 10 MG TABLET PO SCH ×2 (07:56→12:28)
[2018-07-31] MEDS: LIPASE/PROTEASE/AMYLASE 1 CAP CAPSULE.DR PO SCH ×2 (07:56→12:28)
[2018-07-31] MEDS: SERTRALINE HCL 50 MG TABLET PO SCH (09:17)
[2018-07-31] MEDS: CHOLECALCIFEROL (D3) 1,000 UNIT TABLET PO SCH (09:17)
[2018-07-31] MEDS: FAMOTIDINE 20 MG TABLET PO SCH (09:17)
[2018-07-31] MEDS: DOCUSATE SODIUM 100 MG CAPSULE PO SCH (09:17)
[2018-07-31] MEDS: MORPHINE SULFATE SR 15 MG TABLET PO SCH (09:18)
[2018-07-31] MEDS: MULTIVIT-STRESS FORMULA/ZINC TABLET PO SCH (09:18)
[2018-07-31 11:29] LABS: ANION GAP 10 (5-19); BLOOD UREA NITROGEN 44 mg/dL (7-20); CALCIUM 7.4 mg/dL (8.4-10.2); CARBON DIOXIDE 20 mmol/L (22-30); CHLORIDE 102 mmol/L (98-107); GLUCOSE 181 mg/dL (75-110); POTASSIUM 5.4 mmol/L (3.6-5.0)
--- NOTE | 2018-07-31 12:01 | PDOC PROGRESS REPORT ---
Subjective Progress Note for:: 07/31/18 Subjective:: Patient looks much better today, is getting up with minimal assist now, pain seems to be controlled. Hospitalist team is seeing patient and feels that the patient can go home, I discussed her case with the as well as the patient both feel like she can go home so we would agree with this. Pathology is pending now from biopsy, plan for follow-up in our office most likely by Thursday or Thursday next week. I gave the our card to call us on Thursday to make an appointment. Reason For Visit: PANCREATIC CARCINOMA WITH HEPATIC METASTASES Physical Exam Vital Signs: Temp Pulse Resp BP Pulse Ox 98.0 F 86 16 108/50 L 98 07/31/18 08:50 07/31/18 08:50 07/31/18 08:50 07/31/18 08:50 07/31/18 10:35 Intake & Output 07/30/18 07/31/18 08/01/18 06:59 06:59 06:59 Intake Total 2600 2075 1000 Output Total 200 Balance 2600 1875 1000 Weight 82.1 kg 87.7 kg General appearance: PRESENT: no acute distress, well-developed, well-nourished Head exam: PRESENT: atraumatic, normocephalic Eye exam: PRESENT: conjunctiva pink, EOMI, PERRLA. ABSENT: scleral icterus Ear exam: PRESENT: normal external ear exam Mouth exam: PRESENT: moist, tongue midline Neck exam: ABSENT: carotid bruit, JVD, lymphadenopathy, thyromegaly Respiratory exam: PRESENT: clear to auscultation kalin. ABSENT: rales, rhonchi, wheezes Cardiovascular exam: PRESENT: RRR. ABSENT: diastolic murmur, rubs, systolic murmur Pulses: PRESENT: normal dorsalis pedis pul Vascular exam: PRESENT: normal capillary refill GI/Abdominal exam: PRESENT: normal bowel sounds, soft. ABSENT: distended, guarding, mass, organolmegaly, rebound, tenderness Rectal exam: PRESENT: deferred Extremities exam: PRESENT: full ROM. ABSENT: calf tenderness, clubbing, pedal edema Neurological exam: PRESENT: alert, awake, oriented to person, oriented to place , oriented to time, oriented to situation, CN II-XII grossly intact. ABSENT: motor sensory deficit Psychiatric exam: PRESENT: appropriate affect, normal mood. ABSENT: homicidal ideation, suicidal ideation Skin exam: PRESENT: dry, intact, warm. ABSENT: cyanosis, rash Results Laboratory Results: 07/31/18 05:47 07/31/18 10:05 07/31/18 07/31/18 07/31/18 05:47 05:47 07:16 WBC 18.7 H RBC 2.88 L Hgb 9.2 L Hct 27.1 L MCV 94 MCH 31.9 MCHC 33.9 RDW 16.3 H Plt Count 196 Seg Neutrophils % Not Reportable Lymphocytes % Not Reportable Monocytes % Not Reportable Eosinophils % Not Reportable Basophils % Not Reportable Absolute Neutrophils Not Reportable Absolute Lymphocytes Not Reportable Absolute Monocytes Not Reportable Absolute Eosinophils Not Reportable Absolute Basophils Not Reportable Sodium Cancelled Cancelled Potassium Cancelled Cancelled Chloride Cancelled Cancelled Carbon Dioxide Cancelled Cancelled Anion Gap Cancelled Cancelled BUN Cancelled Cancelled Creatinine Cancelled Cancelled Est GFR ( Amer) Cancelled Cancelled Est GFR (Non-Af Amer) Cancelled Cancelled Glucose Cancelled Cancelled Calcium Cancelled Cancelled Magnesium Cancelled Cancelled 07/31/18 10:05 WBC RBC Hgb Hct MCV MCH MCHC RDW Plt Count Seg Neutrophils % Lymphocytes % Monocytes % Eosinophils % Basophils % Absolute Neutrophils Absolute Lymphocytes Absolute Monocytes Absolute Eosinophils Absolute Basophils Sodium 132.0 L Potassium 5.4 H Chloride 102 Carbon Dioxide 20 L Anion Gap 10 BUN 44 H Creatinine 1.96 H Est GFR ( Amer) 31 L Est GFR (Non-Af Amer) 25 L Glucose 181 H Calcium 7.4 L Magnesium 2.0 Impressions: Abdomen Ultrasound 07/29/18 10:53 IMPRESSION: Contracted gallbladder not well seen. Multiple liver masses are present worrisome for metastatic disease Pancreatic tail mass seen on CT exam 07/21/2018 is not apparent by ultrasound due to bowel gas shadowing today Guidance Needle Placement CT 07/30/18 00:00 IMPRESSION: CT GUIDED TARGETED LIVER BIOPSY PERFORMED ABOVE. PATHOLOGY PENDING. NO IMMEDIATE COMPLICATIONS. Liver Biopsy CT 07/30/18 00:00 IMPRESSION: CT GUIDED TARGETED LIVER BIOPSY PERFORMED ABOVE. PATHOLOGY PENDING. NO IMMEDIATE COMPLICATIONS. Assessment & Plan - Diagnosis (1) Pancreatic cancer metastasized to liver Is this a current diagnosis for this admission?: Yes Plan: Likely to be a stage IV pancreatic cancer, again discussed prognosis and next steps of care with . (2) Pain, neoplasm-related Is this a current diagnosis for this admission?: Yes Plan: Morphine prescription written by hospitalist team, we will take this over as an outpatient. - Time Time Spent with patient: 35 or more minutes
[2018-07-31 13:38] VITALS: BP 99/41
[2018-07-31] MEDS ORDERED: DIPHENHYDRAMINE HCL 25 MG CAPSULE ONE (13:58)
[2018-07-31] MEDS ORDERED: DIPHENHYDRAMINE HCL 25 MG CAPSULE PO ONE (14:30)
[2018-07-31] MEDS: MORPHINE SULFATE IR 15 MG TABLET PO PRN (14:53)
--- NOTE | 2018-07-31 15:29 | PDOC DISCHARGE SUMMARY ---
General - Admit/Disc Date/PCP Admission Date/Primary Care Provider: 07/29/18 14:32 MANUEL BO MD Discharge Date: 07/31/18 - Discharge Diagnosis (1) Abdominal pain Is this a current diagnosis for this admission?: Yes Summary: A pain management plan for control of her abdominal pain and nausea was initiated utilizing MS Contin for baseline pain control, plus MS IR for breakthrough pain. A rescue dose of morphine sulfate that could be administered intravenously was maintained for severe pain not responding to oral medications. Her nausea was addressed with scheduled Reglan before meals and at bedtime combined scheduled with Pancreaze 10 before meals, and as needed Zofran and/or Phenergan. She responded exceptionally well to this therapeutic plan and had excellent control of her pain utilizing oral medications only and her nausea was resolved with a recurrence of her appetite and good oral intake of solids and liquids. Since she was feeling better she expressed a very strong desire to be discharged from the hospital and I agreed to her wishes with the understanding that she would return to the hospital should she have any difficulties at home whatsoever. She was therefore discharged home in improved and stable condition. (2) Pancreatic cancer metastasized to liver Is this a current diagnosis for this admission?: Yes Summary: Dr. Vasquez has seen the patient in consultation and advised a liver biopsy which was performed on 07/30/2015. Pending results of the liver biopsy we continued supportive and symptomatic cares to achieve good control of her nausea and pain. The results of the liver biopsy were pending at the time of her discharge. She will follow-up with Dr. Vasquez within 3-5 days for the results of her biopsy and planning of her course going forward based on those results and the results of testing done during this hospitalization. (3) Hypomagnesemia Is this a current diagnosis for this admission?: Yes Summary: Patient's hypomagnesemia was addressed in the emergency room with a 4 g magnesium rider ordered. Her magnesium level returned to normal by the following day. Her magnesium level was followed on a regular basis during her hospital course and no further intervention was needed. (4) Diabetes mellitus type 2 in nonobese Is this a current diagnosis for this admission?: Yes Summary: The patient's chronic type II diabetes mellitus was a significant comorbidity but is currently in good control and therefore a continuation of her home Trulicity in addition to a consistent carbohydrate no concentrated sweets diet will be used as the initial post hospital therapy for her diabetes. She has been instructed to discontinue her Janumet XR and further intervention and/or treatment will be determined as needed by her primary care provider at her next evaluation within 1-2 weeks. (5) Creatinine elevation Is this a current diagnosis for this admission?: Yes Summary: Aspen' creatinine was 0.64 on admission and gradually increased to 1.25 on the second day and 1.94 on the day of discharge. She was normotensive and well hydrated throughout her hospital course and there is no reason to believe that she was significantly hypotensive prior to her arrival at the emergency room. He was considered possible that the patient's increased creatinine could be due to her pancreatic carcinoma with metastasis however no invasion of the kidney or ureter was seen on the CAT scan done at the time of admission. The possibility that the patient may have had a renal sensitivity to the radiographic contrast and could be suffering from acute kidney injury is a consideration, also the reintroduction of her Janumet XR for her diabetes may also be possible source of her acute renal injury. Consideration was given to keeping the patient in the hospital for further evaluation and reevaluation of this problem however she was quite desirous of being discharged and was very agreeable to following up in a few days with Dr. Vasquez where her renal functions could be reevaluated. She has been encouraged to hydrate herself well at home and return if she is having difficulty with vomiting, increased pain or develops any signs of hematuria or urinary tract infection. She is also instructed to discontinue the use of Janumet XR, aspirin and lisinopril at home. When she is seen in at the oncology office within the next few days she should have a metabolic profile obtained for reevaluation of her renal functions. - Additional Information Resuscitation Status: Full Code Discharge Diet: Diabetic Discharge Activity: Activity As Tolerated, Balance Activity w/Rest, No Driving, Walk Frequently Prescriptions: Diphenhydramine HCl [Benadryl 25 mg Capsule] 25 mg PO Q4H PRN 30 Days #60 capsule PRN Reason: Itching Famotidine [Pepcid 20 mg Tablet] 20 mg PO BIDACBS 30 Days #60 tablet Lipase/Protease/Amylase [Pancreaze-10 Agus.] 1 cap PO AC 30 Days #90 capsule. Metoclopramide HCl [Reglan 10 mg Tablet] 10 mg PO ACHS 30 Days #120 tablet Morphine Sulfate 1 tsp PO Q4HP PRN 7 Days #120 ml MDD 4 tsp PRN Reason: Severe Pain Morphine Sulfate [Ms-Contin Sr 15 mg Tablet] 15 mg PO Q12 15 Days #30 tablet.sa Ondansetron [Zofran Odt 4 mg Tablet] 4 mg SL Q4HP PRN 7 Days #6 tab.rapdis PRN Reason: For Nausea/Vomiting Sennosides [Senna-Extra] 17.2 mg PO BIDACBS 30 Days #60 tablet Home Medications: Cholecalciferol (Vitamin D3) [Vitamin D3 1000 Unit Tablet] 1,000 unit PO DAILY 07/29/18 Dulaglutide [Trulicity] 0.75 mg SQ FR@1000 07/29/18 Lovastatin [Mevacor] 10 mg PO DAILY 07/29/18 Sertraline HCl [Zoloft 50 mg Tablet] 50 mg PO DAILY 07/29/18 Umeclidinium Brm/Vilanterol Tr [Anoro Ellipta 62.5-25 Mcg INH] 1 puff IH DAILY 07/29/18 Vitamin B Complex 1 tab PO DAILY 07/29/18 Diphenhydramine HCl [Benadryl 25 mg Capsule] 25 mg PO Q4H PRN 30 Days #60 capsule 07/31/18 Famotidine [Pepcid 20 mg Tablet] 20 mg PO BIDACBS 30 Days #60 tablet 07/31/18 Lipase/Protease/Amylase [Pancreaze-10 Capsule.] 1 cap PO AC 30 Days #90 capsule. 07/31/18 Metoclopramide HCl [Reglan 10 mg Tablet] 10 mg PO ACHS 30 Days #120 tablet 07/31 Morphine Sulfate 1 tsp PO Q4HP PRN 7 Days #120 ml MDD 4 tsp 07/31/18 Morphine Sulfate [Ms-Contin Sr 15 mg Tablet] 15 mg PO Q12 15 Days #30 tablet.sa 07/31/18 Ondansetron [Zofran Odt 4 mg Tablet] 4 mg SL Q4HP PRN 7 Days #6 tab.rapdis 07/31 Sennosides [Senna-Extra] 17.2 mg PO BIDACBS 30 Days #60 tablet 07/31/18 History of Present Illness History of Present Illness: ASPEN BAUGH is a 68 year old female who presented to the emergency room from her home with a 2-month history of gradually increasing right upper quadrant abdominal pain. She indicates that the pain is a nonradiating, constantly present, waxing and waning, moderate to severe, dull, aching, pressure, in the epigastrium and right upper quadrant of her abdomen. She has not identified any aggravating or ameliorating factors for her pain and denies prior similar episodes. She admits that her pain has been accompanied by nausea since its onset 2 months ago and the nausea like the pain has gradually increased over time. Additionally her pain has been accompanied recently by a yellowish discoloration of her skin as well as diaphoresis especially worse at night for the last several days. She has had a sensation of fever although no measurable elevation of her temperature. Her appetite has been somewhat decreased due to the nausea and she also admits that she has not been drinking very much fluid. She admits that she had a recent CAT scan which "showed a tumor on the pancreas and some spots on the liver". Hospital Course Hospital Course: 07/29/2018: In the emergency room she was treated with IV fluids, IV antiemetics and IV opiate analgesics. She was subsequently admitted for pain and nausea control, oncology evaluation and appropriate disposition in accordance with her wishes for the remainder of her life. This will be accomplished by a consultation with Dr. Vasquez, hospitalist titration of her opiate pain medications and antiemetics for most effective dosing and a social insurance specialist consultation for discharge management. 07/30/18: Aspen is feeling a little bit better today she has been able to keep down all of her fluids and a little bit of solid food so far today. Her nausea seems to be somewhat decreased and she is having no significant pain at the present time. She will be undergoing a liver biopsy today as requested by Dr. Vasquez. Her examination shows little or no change and she will continue to receive supportive and symptomatic cares. Further adjustments in her analgesic and antiemetic regiment will be made as required. 07/31/18: Less is feeling considerably better today she has been able to eat well and drink fluids without any nausea and her pain is in very good control. She would like to be discharged home because she would like to be able to go outside and enjoy the company of her instead of being confined to the hospital. We discussed that she could stay in the hospital for the next day or 2 while we continue to watch her kidney functions and monitor her other chronic problems. She preferred to be discharged home and since she was in agreement to return to the hospital should she have any problems I consented to her discharge. She was discharged home in improved and stable condition with good pain and nausea control and in agreement to follow-up with Dr. Vasquez in approximately 3 days where she will have further evaluation of her metabolic functions with a metabolic profile and a CBC recommended to be obtained at that time. At that visit she will also discuss her liver biopsy results and make plans for her further care. Physical Exam Vital Signs: Temp Pulse Resp BP Pulse Ox 98.0 F 86 16 99/41 L 98 07/31/18 13:32 07/31/18 13:32 07/31/18 13:32 07/31/18 13:32 07/31/18 13:32 Intake & Output 07/29/18 07/30/18 07/31/18 23:59 23:59 23:59 Intake Total 1100 2500 2075 Output Total 200 Balance 1100 2500 1875 Weight 82.554 kg 82.1 kg 87.7 kg General appearance: PRESENT: no acute distress, cooperative Head exam: PRESENT: atraumatic, normocephalic Eye exam: PRESENT: scleral icterus. ABSENT: conjunctival injection, periorbital swelling Ear exam: PRESENT: normal external ear exam. ABSENT: drainage Mouth exam: PRESENT: moist, tongue midline Neck exam: ABSENT: thyromegaly, tracheal deviation Respiratory exam: PRESENT: clear to auscultation kalin, symmetrical, unlabored Cardiovascular exam: PRESENT: RRR. ABSENT: clicks, diastolic murmur, gallop, rubs, systolic murmur Vascular exam: PRESENT: normal capillary refill. ABSENT: pallor GI/Abdominal exam: PRESENT: normal bowel sounds, soft Rectal exam: PRESENT: deferred Extremities exam: ABSENT: joint swelling, pedal edema Musculoskeletal exam: PRESENT: full ROM, normal inspection Neurological exam: PRESENT: alert, oriented to person, oriented to place, oriented to time, oriented to situation, CN II-XII grossly intact. ABSENT: motor sensory deficit Psychiatric exam: PRESENT: appropriate affect, normal mood Skin exam: ABSENT: jaundice, rash, urticaria Results Laboratory Results: 07/31/18 05:47 07/31/18 10:05 07/31/18 07/31/18 07/31/18 05:47 05:47 07:16 WBC 18.7 H RBC 2.88 L Hgb 9.2 L Hct 27.1 L MCV 94 MCH 31.9 MCHC 33.9 RDW 16.3 H Plt Count 196 Seg Neutrophils % Not Reportable Lymphocytes % Not Reportable Monocytes % Not Reportable Eosinophils % Not Reportable Basophils % Not Reportable Absolute Neutrophils Not Reportable Absolute Lymphocytes Not Reportable Absolute Monocytes Not Reportable Absolute Eosinophils Not Reportable Absolute Basophils Not Reportable Sodium Cancelled Cancelled Potassium Cancelled Cancelled Chloride Cancelled Cancelled Carbon Dioxide Cancelled Cancelled Anion Gap Cancelled Cancelled BUN Cancelled Cancelled Creatinine Cancelled Cancelled Est GFR ( Amer) Cancelled Cancelled Est GFR (Non-Af Amer) Cancelled Cancelled Glucose Cancelled Cancelled Calcium Cancelled Cancelled Magnesium Cancelled Cancelled 07/31/18 10:05 WBC RBC Hgb Hct MCV MCH MCHC RDW Plt Count Seg Neutrophils % Lymphocytes % Monocytes % Eosinophils % Basophils % Absolute Neutrophils Absolute Lymphocytes Absolute Monocytes Absolute Eosinophils Absolute Basophils Sodium 132.0 L Potassium 5.4 H Chloride 102 Carbon Dioxide 20 L Anion Gap 10 BUN 44 H Creatinine 1.96 H Est GFR ( Amer) 31 L Est GFR (Non-Af Amer) 25 L Glucose 181 H Calcium 7.4 L Magnesium 2.0 Impressions: Abdomen Ultrasound 07/29/18 10:53 IMPRESSION: Contracted gallbladder not well seen. Multiple liver masses are present worrisome for metastatic disease Pancreatic tail mass seen on CT exam 07/21/2018 is not apparent by ultrasound due to bowel gas shadowing today Guidance Needle Placement CT 07/30/18 00:00 IMPRESSION: CT GUIDED TARGETED LIVER BIOPSY PERFORMED ABOVE. PATHOLOGY PENDING. NO IMMEDIATE COMPLICATIONS. Liver Biopsy CT 07/30/18 00:00 IMPRESSION: CT GUIDED TARGETED LIVER BIOPSY PERFORMED ABOVE. PATHOLOGY PENDING. NO IMMEDIATE COMPLICATIONS. Qualifiers - * PATIENT BEING DISCHARGED WITH ANY OF THE FOLLOWING DIAGNOSIS: No Plan Discharge Plan: Discharged home in improved and stable condition with the stipulation of the patient will return to the hospital at any time should she develop any new symptoms or have any regression in her wellness. Time Spent: Greater than 30 Minutes
== END 2018-07-31 15:32 | disposition home or self-care (01) | DRG 948 ==
LOC: ER 10:11 → EH 14:32 → 4N 16:56
PROVIDERS: ADMIT Emergency Medicine; ATTEND Emergency Medicine
PROC: 0FB03ZX Excision of Liver, Percutaneous Approach, Diagnostic (ICD-10-PCS; principal; 2018-07-30)
DX: G89.3 Neoplasm related pain (acute) (chronic) (principal); C78.7 Secondary malignant neoplasm of liver and intrahepatic bile duct; C25.9 Malignant neoplasm of pancreas, unspecified; F17.200 Nicotine dependence, unspecified, uncomplicated; E83.42 Hypomagnesemia; E78.5 Hyperlipidemia, unspecified; I10 Essential (primary) hypertension; E11.9 Type 2 diabetes mellitus without complications; Z66 Do not resuscitate; R79.89 Other specified abnormal findings of blood chemistry; Z82.49 Family history of ischemic heart disease and other diseases of the circulatory system; Z83.3 Family history of diabetes mellitus; Z80.0 Family history of malignant neoplasm of digestive organs; Z85.3 Personal history of malignant neoplasm of breast; Z90.11 Acquired absence of right breast and nipple; Z79.82 Long term (current) use of aspirin; Z79.899 Other long term (current) drug therapy
CPT/HCPCS: 36415; 47000; 51701; 76705; 77012; 80048; 80053; 80074; 80076; 81001; 82140; 82150; 82550; 83690; 83735; 84100; 84443; 85025; 85610; 85730; 88305; 88341; 88342; 93005; 93010; 96361; 96365; 96366; 99285; G8978-GP; G8979-GP; G8987-GO; G8988-GO; J2250; J3010; J3475; J3480; J3490; J7030; S0119

== ENCOUNTER 2018-08-01 17:18 | Observation (INO) | payer MEDICARE ==
[2018-08-01] MEDS: NORMAL SALINE 1000 ML 2,000 ML IV ONE ×2 (17:40→20:35)
--- NOTE | 2018-08-01 18:10 | ER Document Report ---
ED Medical Screen (RME) - General Chief Complaint: Altered Mental Status Stated Complaint: ALTERED MENTAL STATUS Mode of Arrival: Medic Information source: Relative, [facility] Records Notes: 68-year-old female with COPD, diabetes, recently diagnosed pancreatic cancer with metastasis presents via EMS from home with altered mental status. is at the bedside and provides the history. Patient was discharged from the hospital yesterday with plans to follow-up with oncology on Thursday. reports that the patient was eating, drinking and normally upon discharge yesterday. I have greeted and performed a rapid initial assessment of this patient. A comprehensive ED assessment and evaluation of the patient, analysis of test results and completion of medical decision making process we will be contacted by additional ED providers. PHYSICAL EXAMINATION: Vital signs reviewed-hypoxia, hypotensive GENERAL: Ill-appearing LUNGS: respiratory distress, coarse breath sounds SKIN: Jaundice TRAVEL OUTSIDE OF THE [place] IN LAST 30 DAYS: No - HPI Onset: Just prior to arrival - Related Data Smoking: Cigarettes Frequency of alcohol use: None Drug Abuse: None Allergies/Adverse Reactions: No Known Allergies Allergy (Verified 07/29/18 10:12) Past Medical History - Social History Chew tobacco use (# tins/day): No Frequency of alcohol use: None Drug Abuse: None - Past Medical History Cardiac Medical History: Reports: Hx Hypercholesterolemia, Hx Hypertension Denies: Hx Atrial Fibrillation, Hx Congestive Heart Failure, Hx Coronary Artery Disease, Hx DVT, Hx Heart Attack, Hx Peripheral Vascular Disease, Hx Pulmonary Embolism, Hx Heart Murmur Pulmonary Medical History: Reports: Hx COPD Denies: Hx Asthma, Hx Bronchitis, Hx Pneumonia, Hx Tuberculosis Neurological Medical History: Denies: Hx Cerebrovascular Accident, Hx Migraine, Hx Seizures Endocrine Medical History: Reports: Hx Diabetes Mellitus Type 2. Denies: Hx Diabetes Mellitus Type 1, Hx Hyperthyroidism, Hx Hypothyroidism Renal/ Medical History: Denies: Hx Peritoneal Dialysis Malignancy Medical History: Reports: Hx Breast Cancer - right mastectomy 2009, Hx Liver Cancer - Newly diagnosed, but came from pancreas, Hx Pancreatic Cancer - Newly diagnosed. Denies: Hx Bone Cancer, Hx Brain Cancer, Hx Colorectal Cancer, Hx Lung Cancer, Hx Renal (Kidney) Cancer GI Medical History: Denies: Hx Cirrhosis, Hx Crohn's Disease, Hx Gastroesophageal Reflux Disease, Hx Hepatitis, Hx Hiatal Hernia, Hx Ulcer, Hx Ulcerative Colitis Musculoskeltal Medical History: Denies Hx Arthritis, Denies Hx Fibromyalgia, Denies Hx Gout Skin Medical History: Denies Hx Eczema, Denies Hx Psoriasis Psychiatric Medical History: Reports: Hx Depression Infectious Medical History: Denies: Hx Hepatitis Past Surgical History: Reports: Hx Mastectomy - 2006. Denies: Hx Cholecystectomy, Hx Gastric Bypass Surgery, Hx Hysterectomy, Hx Open Heart Surgery, Hx Pacemaker - Immunizations Hx Diphtheria, Pertussis, Tetanus Vaccination: Yes Doctor's Discharge - Discharge Referrals: MANUEL BO MD [Primary Care Provider] - Follow up as needed
[2018-08-01 18:30] LABS: INTERNATIONAL RATION (INR) 1.62
--- NOTE | 2018-08-01 18:45 | ER Document Report ---
ED General - General Chief Complaint: Altered Mental Status Stated Complaint: ALTERED MENTAL STATUS Time Seen by Provider: 08/01/18 18:24 Mode of Arrival: Medic Cannot obtain history due to: Unstable vital signs, Altered mental status Notes: Patient is a 68-year-old female recently diagnosed with metastatic pancreatic cancer who presents with refusal to eat or drink, not speaking or moving. EMS found patient to be saturating 85% on room air. The remainder of the history is unobtainable as the patient is altered, unable to provide additional history. TRAVEL OUTSIDE OF THE [place] IN LAST 30 DAYS: No - Related Data Allergies/Adverse Reactions: No Known Allergies Allergy (Verified 07/29/18 10:12) Past Medical History - General Information source: Relative, [facility] Records - Social History Smoking Status: Current Every Day Smoker Chew tobacco use (# tins/day): No Frequency of alcohol use: None Drug Abuse: None Lives with: Spouse/Significant other Family History: CAD, DM, Hypertension, Malignancy, Other - [facility] cancer Patient has suicidal ideation: No Patient has homicidal ideation: No - Past Medical History Cardiac Medical History: Reports: Hx Hypercholesterolemia, Hx Hypertension Denies: Hx Atrial Fibrillation, Hx Congestive Heart Failure, Hx Coronary Artery Disease, Hx DVT, Hx Heart Attack, Hx Peripheral Vascular Disease, Hx Pulmonary Embolism, Hx Heart Murmur Pulmonary Medical History: Reports: Hx COPD Denies: Hx Asthma, Hx Bronchitis, Hx Pneumonia, Hx Tuberculosis Neurological Medical History: Denies: Hx Cerebrovascular Accident, Hx Migraine, Hx Seizures Endocrine Medical History: Reports: Hx Diabetes Mellitus Type 2. Denies: Hx Diabetes Mellitus Type 1, Hx Hyperthyroidism, Hx Hypothyroidism Renal/ Medical History: Denies: Hx Peritoneal Dialysis Malignancy Medical History: Reports: Hx Breast Cancer - right mastectomy 2008, Hx Liver Cancer - Newly diagnosed, but came from pancreas, Hx Pancreatic Cancer - Newly diagnosed. Denies: Hx Bone Cancer, Hx Brain Cancer, Hx Colorectal Cancer, Hx Lung Cancer, Hx Renal (Kidney) Cancer GI Medical History: Denies: Hx Cirrhosis, Hx Crohn's Disease, Hx Gastroesophageal Reflux Disease, Hx Hepatitis, Hx Hiatal Hernia, Hx Ulcer, Hx Ulcerative Colitis Musculoskeletal Medical History: Denies Hx Arthritis, Denies Hx Fibromyalgia, Denies Hx Gout Skin Medical History: Denies Hx Eczema, Denies Hx Psoriasis Psychiatric Medical History: Reports: Hx Depression Infectious Medical History: Denies: Hx Hepatitis Past Surgical History: Reports: Hx Mastectomy - 2007. Denies: Hx Cholecystectomy, Hx Gastric Bypass Surgery, Hx Hysterectomy, Hx Open Heart Surgery, Hx Pacemaker - Immunizations Hx Diphtheria, Pertussis, Tetanus Vaccination: Yes Hx Pneumococcal Vaccination: 07/26/17 Review of Systems - Review of Systems -: Yes ROS unobtainable due to patient's medical condition Physical Exam - Vital signs Vitals: Resp 20 08/01/18 17:22 Interpretation: Hypotensive, Hypoxic, Tachypneic Notes: PHYSICAL EXAMINATION: GENERAL: Appears to be actively dying, pale, listless fluctuating mental status. HEAD: Atraumatic, normocephalic. EYES: Pupils equal round and sluggishly reactive, scleral icterus present conjunctiva are normal. ENT: nares patent, oropharynx clear without exudates. Extremely dry mucous membranes. NECK: Normal range of motion LUNGS: Rapid, shallow breathing. Breath sounds otherwise clear bilaterally HEART: Regular rate and rhythm without murmurs ABDOMEN: Soft, no localized areas of tenderness or rebound EXTREMITIES: no pitting or edema. No cyanosis. NEUROLOGICAL: No focal neurological deficits. Moves all extremities spontaneously. PSYCH: Oriented only to person, listless SKIN: Cool, pale skin Course - Re-evaluation Re-evalutation: 08/01/18 18:39 Documentation is delayed as I been at the patient's bedside and speaking with the for the past 20 minutes. In summary this is a very unfortunate 68- year-old female with a recent diagnosis of metastatic, stage IV pancreatic cancer with metastatic disease to the liver. The patient arrives hypoxic 85% on room air, altered, only able to tell me her name, rapidly falling asleep over and over again. Breath sounds are overall clear bilaterally, vitals after being placed on BiPAP showed dramatic improvement of her work of breathing as well as normalization of her oxygenation. Overall I suspect the patient has hepatic encephalopathy as her INR has dramatically worsened from the fifth, she is icteric, and presents as acutely delirious. Ammonia levels are pending. I had a very blunt and direct conversation with the and informed him that I believe that the patient is actively dying. I have informed him that I believe that the patient has less than several days, maximally several weeks to live. I advised that regardless of what we do, the patient will and unfortunately short time. The patient does not have capacity to make her decisions at this point. The patient has requested that we continue to to proceed with all possible life-saving interventions at this time point. Her initial EKG is likewise worrisome as she has developed a new right bundle branch block and a prolonged QT worrisome for significant electrolyte derangements. Awaiting laboratories, will continue to reassess at regular intervals. IV fluid resuscitation has been initiated. 08/01/18 19:55 I have spent most of the last past 1 hour speaking to the oncologist impression printer Dr. Vasquez as well as speaking to the and multiple family members. In summary the patient's laboratories demonstrate multisystem organ failure and the patient does have been rapid deterioration of her hemodynamic stability. The patient's troponin is elevated, she has developed acute renal failure with a GFR of 12, and her liver failure has rapidly progressed. The patient is likewise delirious. I have reviewed with the family at the bedside at length that the patient has dysfunction of the following systems: Renal, hepatic, cardiovascular, neurologic. I reviewed that these are irreversible and regardless of the interventions that we take including intubation, central line placement, pressor administration, that the patient's progression towards is inevitable at this time. I did have Dr. Vasquez on speaker phone for the duration of this conversation. The family has now agreed the patient will transition to comfort measures only. I have ordered hydromorphone 1 mg every 30 minutes as needed, haloperidol 2 mg IV now, discontinuation of BiPAP and placement of supplemental nasal cannula oxygen. I anticipate that the patient will quite rapidly with these interventions. fiberglass model maker will likewise be discontinued. 08/01/18 20:22 I have continue to reassess the patient. She is much more comfortable now, resting calmly, no distress. Comfort measures have been initiated. Will discuss with the hospitalist for admission. 08/01/18 21:13 I continue to reassess the patient who is responding well to our interventions for comfort. She is resting comfortably, family at the bedside. Dr. Kahn has accepted the patient for admission. - Vital Signs Vital signs: Temp Pulse Resp BP Pulse Ox 16 87/42 L 100 08/01/18 19:16 08/01/18 19:16 08/01/18 19:16 - Laboratory Result Diagrams: 08/01/18 19:09 08/01/18 18:07 Laboratory results interpreted by me: 08/01/18 08/01/18 08/01/18 17:44 18:07 18:07 WBC 24.9 H RBC 3.21 L Hgb 9.4 L Hct 28.5 L RDW 17.4 H Immature Leukocytes % 2 H Abs Neuts (Manual) 18.2 H Abs Monocytes (Manual) 2.0 H PT 20.0 H VBG pH VBG HCO3 Sodium Potassium Carbon Dioxide BUN Creatinine Est GFR ( Amer) Est GFR (Non-Af Amer) Glucose POC Glucose 256 H Lactic Acid Calcium Total Bilirubin Direct Bilirubin AST ALT Alkaline Phosphatase Ammonia Creatine Kinase CK-MB (CK-2) Albumin Urine Protein Urine Blood Urine Bilirubin Urine Urobilinogen 08/01/18 08/01/18 08/01/18 18:07 18:07 18:07 WBC RBC Hgb Hct RDW Immature Leukocytes % Abs Neuts (Manual) Abs Monocytes (Manual) PT VBG pH 7.16 L* VBG HCO3 13.9 L Sodium 132.5 L Potassium 6.3 H* Carbon Dioxide 15 L BUN 64 H Creatinine 3.85 H Est GFR ( Amer) 14 L Est GFR (Non-Af Amer) 12 L Glucose 227 H POC Glucose Lactic Acid Calcium 7.6 L Total Bilirubin 8.1 H Direct Bilirubin 7.4 H AST 1708 H ALT 614 H Alkaline Phosphatase 270 H Ammonia Creatine Kinase 370 H CK-MB (CK-2) 12.30 H Albumin 2.8 L Urine Protein Urine Blood Urine Bilirubin Urine Urobilinogen 08/01/18 08/01/18 08/01/18 18:07 18:27 18:47 WBC RBC Hgb Hct RDW Immature Leukocytes % Abs Neuts (Manual) Abs Monocytes (Manual) PT VBG pH VBG HCO3 Sodium Potassium Carbon Dioxide BUN Creatinine Est GFR ( Amer) Est GFR (Non-Af Amer) Glucose POC Glucose Lactic Acid 4.2 H Calcium Total Bilirubin Direct Bilirubin AST ALT Alkaline Phosphatase Ammonia < 8.7 L Creatine Kinase CK-MB (CK-2) Albumin Urine Protein 30 H Urine Blood SMALL H Urine Bilirubin SMALL H Urine Urobilinogen 4.0 H - Diagnostic Test Radiology reviewed: Image reviewed, Reports reviewed Radiology results interpreted by me: 08/01/18 21:14 Chest x-ray: Left upper lobe infiltrate - EKG Interpretation by Me Additional EKG results interpreted by me: 08/01/18 18:45 Sinus rhythm, rate 83, new onset right bundle branch block, prolonged QT, no ST elevations or depressions. Critical Care Note - Critical Care Note Total time excluding time spent on procedures (mins): 90 Comments: Critical care time spent obtaining history from patient or surrogate, discussions with consultants, development of treatment plan with patient or surrogate, evaluation of patient's response to treatment, examination of patient , ordering and performing treatments and interventions, ordering and review of laboratory studies, re-evaluation of patient's condition, ordering and review of radiographic studies and review of old charts Discharge - Discharge Clinical Impression: Pain, neoplasm-related, Pancreatic cancer metastasized to liver, Respiratory distress, Jaundice Acute renal failure Qualifiers: Acute renal failure type: unspecified Qualified Code(s): N17.9 - Acute kidney failure, unspecified Condition: Critical Disposition: ADMITTED INPATIENT Admitting Provider: Hospitalist Unit Admitted: Medical Floor
--- NOTE | 2018-08-01 18:49 | EKG REPORT ---
SEVERITY:- ABNORMAL ECG - SINUS RHYTHM RIGHT BUNDLE BRANCH BLOCK : Confirmed by: Cely Randall 01-Aug-2018 18:47:54
--- NOTE | 2018-08-01 18:50 | RADIOLOGY REPORT (SQ) ---
EXAM DESCRIPTION: CHEST SINGLE VIEW COMPLETED DATE/TIME: 08/01/2018 6:25 pm REASON FOR STUDY: decreased spo2 COMPARISON: Chest films 02/28/2015, 02/01/2013 EXAM PARAMETERS: NUMBER OF VIEWS: One view. TECHNIQUE: Single frontal radiographic view of the chest acquired. RADIATION DOSE: NA LIMITATIONS: None. FINDINGS: LUNGS AND PLEURA: Minimal airspace disease in the periphery of the left upper lobe. This could represent a small focus of pneumonia. Pulmonary infarct is possible. No pleural effusion or pneumothorax MEDIASTINUM AND HILAR STRUCTURES: No masses. Contour normal. HEART AND VASCULAR STRUCTURES: No cardiomegaly. Very large main pulmonary artery. BONES: No acute findings. HARDWARE: None in the chest. OTHER: No other significant finding. IMPRESSION: Minimal airspace disease in the periphery of the left upper lobe. This could represent a small focus of pneumonia. Pulmonary infarct could not be excluded. Large main pulmonary artery worrisome for pulmonary hypertension No acute infiltrates. TECHNICAL DOCUMENTATION: JOB ID: [id number] [employer]- All Rights Reserved Reading location - IP/workstation name: [email or web address]
[2018-08-01 18:51] LABS: ALANINE AMINOTRANSFERASE 614 U/L (9-52); ALBUMIN 2.8 g/dL (3.5-5.0); ALKALINE PHOSPHATASE 270 U/L (38-126); ANION GAP 18 (5-19); BILIRUBIN,DIRECT 7.4 mg/dL (0.0-0.4); BILIRUBIN,TOTAL 8.1 mg/dL (0.2-1.3); BLOOD UREA NITROGEN 64 mg/dL (7-20); CALCIUM 7.6 mg/dL (8.4-10.2); CARBON DIOXIDE 15 mmol/L (22-30); CHLORIDE 100 mmol/L (98-107); CREATINE KINASE 370 U/L (30-135); GLUCOSE 227 mg/dL (75-110); SODIUM 132.5 mmol/L (137-145); TOTAL PROTEIN 6.3 g/dL (6.3-8.2)
[2018-08-01 18:59] LABS: CREATINE KINASE MB 12.3 ng/mL (<4.55)
[2018-08-01 19:08] LABS: TROPONIN I 0.443 ng/mL
[2018-08-01 19:12] LABS: VENOUS BLOOD BASE EXCESS -14.1 mmol/L; VENOUS BLOOD HCO3 13.9 mmol/L (20-32); VENOUS BLOOD PCO2 39.7 mmHg (35-63)
[2018-08-01 19:14] LABS: VENOUS BLOOD PH 7.16 (7.30-7.42)
[2018-08-01 19:18] VITALS: BP 87/42
[2018-08-01 19:18] LABS: AMORPHOUS SEDIMENT,URINE TRACE /HPF; APPEARANCE,URINE CLOUDY; BILIRUBIN,URINE SMALL (NEGATIVE); GLUCOSE, URINE NEGATIVE (NEGATIVE); KETONES,URINE NEGATIVE (NEGATIVE); LEUKOCYTE ESTERASE,URINE NEGATIVE (NEGATIVE); NITRITE,URINE NEGATIVE (NEGATIVE); PROTEIN,URINE 30 mg/dL (NEGATIVE); URINE SPECIFIC GRAVITY 1.017
[2018-08-01 19:20] LABS: COLOR,URINE DARK YELLOW
[2018-08-01 19:23] LABS: ASPARTATE AMINO TRANSFERASE 1708 U/L (14-36)
[2018-08-01 19:24] LABS: POTASSIUM 6.3 mmol/L (3.6-5.0)
[2018-08-01 19:35] LABS: HEMATOCRIT 28.5 % (36.0-47.0); HEMOGLOBIN 9.4 g/dL (12.0-15.5); RED BLOOD COUNT 3.21 10^6/uL (3.72-5.28); WHITE BLOOD COUNT 24.9 10^3/uL (4.0-10.5)
[2018-08-01 19:36] LABS: MEAN CORPUSCULAR HEMOGLOBIN 29.3 pg (27.0-33.4); MEAN CORPUSCULAR HGB CONC 32.9 g/dL (32.0-36.0); PLATELET COUNT 317 10^3/uL (150-450); RED CELL DISTRIBUTION WIDTH 17.4 % (11.5-14.0)
[2018-08-01 19:38] LABS: MEAN CORPUSCULAR VOLUME 89 fl (80-97)
[2018-08-01] MEDS ORDERED: CEFEPIME 2 GM/D5W RTU 2 GM/50 ML RTUPB IV ONE (19:45)
[2018-08-01] MEDS ORDERED: HALOPERIDOL LACTATE INJ 5 MG/1 ML VIAL IV ONE (19:54)
[2018-08-01] MEDS: HYDROMORPHONE HCL INJ/PF 2 MG/ML AMPULE IV PRN ×3 (20:03→21:08)
[2018-08-01 20:22] LABS: ABSOLUTE LYMPHOCYTES# (MANUAL) 4.2 10^3/uL (0.5-4.7); BASOPHILS % (MANUAL) 0 % (0-2); EOSINOPHILS % (MANUAL) 0 % (0-6); LYMPHOCYTES % (MANUAL) 17 % (13-45); MONOCYTES % (MANUAL) 8 % (3-13); TOTAL CELLS COUNTED 100
[2018-08-01 20:31] LABS: ANISOCYTOSIS 1+; POLYCHROMASIA SLIGHT
[2018-08-01 20:32] LABS: HELMET CELLS SLIGHT; OVALOCYTES SLIGHT; POIKILOCYTOSIS 1+; TARGET CELLS 1+; TEAR DROP CELLS 1+; TOXIC GRANULATION SLIGHT; TOXIC VACUOLATION PRESENT
[2018-08-01 20:33] LABS: PLATELET COMMENT ADEQUATE
[2018-08-01] MEDS ORDERED: IPRATROPIUM/ALBUTEROL 0.5-2.5 MG/3 ML AMPUL NEB PRN (21:10)
[2018-08-01] MEDS ORDERED: METOCLOPRAMIDE HCL INJ/PF 10 MG/2 ML SDV IV PRN (21:10)
[2018-08-01] MEDS ORDERED: GLYCOPYRROLATE INJ 0.4 MG/2 ML VIAL IM ONE (21:21)
[2018-08-01] MEDS ORDERED: SCOPOLAMINE HYDROBROMIDE 1.5 MG PATCH.TD72 TD ONE (21:30)
--- NOTE | 2018-08-01 21:31 | PDOC H&P ---
History of Present Illness Admission Date/PCP: 08/01/18 20:35 MANUEL BO MD Patient complains of: Altered mental status History of Present Illness: ASPEN BAUGH is a 68 year old female who unfortunately has been diagnosed recently with stage IV pancreatic cancer with metastasis to the liver. Confused only able to tell her name in the ED, very somnolent falling asleep during the conversation. Patient was placed on BiPAP with initial improvement. Patient was noted to icteric. Laboratories were sent and came dramatically abnormal, this point ED attending Dr. Aguilera went to speak with the family/ at the bedside and with over the phone as at this point it is felt that the patient is actively dying. As per patient was recently diagnosed initially they had persistent to make the patient comfort measures, it was explained that the patient is in multisystem organ failure with rapid deterioration which is irreversible and includes, renal, hepatic, cardiovascular and neurological systems, unfortunately there is not much that we can do for her, understood the situation and decided to make her DO NOT RESUSCITATE and comfort measures. desire to admit the patient during her last hours of life and do not keep her in the emergency department. Past Medical History Cardiac Medical History: Reports: Hyperlipidema, Hypertension Denies: Atrial Fibrillation, Congestive Heart Failure, Coronary Artery Disease, DVT, Myocardial Infarction, Peripheral Vascular Disease, Pulmonary Embolism, Heart Murmur Pulmonary Medical History: Reports: Chronic Obstructive Pulmonary Disease (COPD) Denies: Asthma, Bronchitis, Pneumonia, Tuberculosis Neurological Medical History: Denies: Migraine, Seizures Endocrine Medical History: Reports: Diabetes Mellitus Type 2 Denies: Diabetes Mellitus Type 1, Hyperthyroidism, Hypothyroidism Malignancy Medical History: Reports: Breast Cancer - right mastectomy 2008, Liver Cancer - Newly diagnosed, but came from pancreas, Pancreatic Cancer - Newly diagnosed Denies: Bone Cancer, Brain Cancer, Colorectal Cancer, Lung Cancer, Renal ( Kidney) Cancer GI Medical History: Denies: Cirrhosis, Crohn's Disease, Gastroesophageal Reflux Disease, Hepatitis, Hiatal Hernia, Ulcerative Colitis Musculoskeltal Medical History: Denies: Arthritis, Fibromyalgia, Gout Skin Medical History: Denies: Eczema, Psoriasis Psychiatric Medical History: Reports: Depression Hematology: Denies: Anemia, Sickle Cell Disease, Bleeding Tendencies Past Surgical History Past Surgical History: Reports: Mastectomy - 2006 Denies: Amputation, Cholecystectomy, Gastric Bypass Surgery, Hysterectomy, Pacemaker Social History Lives with: Spouse/Significant other Smoking Status: Current Every Day Smoker Frequency of Alcohol Use: Occasional Hx Recreational Drug Use: No Drugs: None Hx Prescription Drug Abuse: No Family History Family History: CAD, DM, Hypertension, Malignancy, Other [facility] Parental Family History Reviewed: Yes - As above Children Family History Reviewed: NA Sibling(s) Family History Reviewed.: NA Medication/Allergy Home Medications: Cholecalciferol (Vitamin D3) [Vitamin D3 1000 Unit Tablet] 1,000 unit PO DAILY 07/29/18 Dulaglutide [Trulicity] 0.75 mg SQ FR@1000 07/29/18 Lovastatin [Mevacor] 10 mg PO DAILY 07/29/18 Sertraline HCl [Zoloft 50 mg Tablet] 50 mg PO DAILY 07/29/18 Umeclidinium Brm/Vilanterol Tr [Anoro Ellipta 62.5-25 Mcg INH] 1 puff IH DAILY 07/29/18 Vitamin B Complex 1 tab PO DAILY 07/29/18 Diphenhydramine HCl [Benadryl 25 mg Capsule] 25 mg PO Q4H PRN 30 Days #60 capsule 07/31/18 Famotidine [Pepcid 20 mg Tablet] 20 mg PO BIDACBS 30 Days #60 tablet 07/31/18 Lipase/Protease/Amylase [Pancreaze-10 Capsule.] 1 cap PO AC 30 Days #90 capsule.dr 07/31/18 Metoclopramide HCl [Reglan 10 mg Tablet] 10 mg PO ACHS 30 Days #120 tablet 07/31 Morphine Sulfate 1 tsp PO Q4HP PRN 7 Days #120 ml MDD 4 tsp 07/31/18 Morphine Sulfate [Ms-Contin Sr 15 mg Tablet] 15 mg PO Q12 15 Days #30 tablet.sa 07/31/18 Ondansetron [Zofran Odt 4 mg Tablet] 4 mg SL Q4HP PRN 7 Days #6 tab.rapdis 07/31 Sennosides [Senna-Extra] 17.2 mg PO BIDACBS 30 Days #60 tablet 07/31/18 Allergies/Adverse Reactions: No Known Allergies Allergy (Verified 07/29/18 10:12) Review of Systems Review of Systems: Unable to obtain as the patient is obtunded Physical Exam Vital Signs: Temp Pulse Resp BP Pulse Ox 16 87/42 L 100 08/01/18 19:16 08/01/18 19:16 08/01/18 19:16 Additional comments: Patient is comfort measures Results Laboratory Results: 08/01/18 08/01/18 08/01/18 17:44 18:07 18:07 WBC 24.9 H RBC 3.21 L Hgb 9.4 L Hct 28.5 L MCV 89 D MCH 29.3 MCHC 32.9 RDW 17.4 H Plt Count 317 Total Counted 100 Seg Neuts % (Manual) 73 Lymphocytes % (Manual) 17 Eosinophils % (Manual) 0 Basophils % (Manual) 0 Immature Leukocytes % 2 H Abs Neuts (Manual) 18.2 H Abs Lymphs (Manual) 4.2 Abs Monocytes (Manual) 2.0 H Toxic Granulation SLIGHT Toxic Vacuolation PRESENT Polychromasia SLIGHT Poikilocytosis 1+ Anisocytosis 1+ Helmet Cells SLIGHT PT 20.0 H INR 1.62 VBG pH VBG pCO2 VBG HCO3 VBG Base Excess Sodium Potassium Chloride Carbon Dioxide Anion Gap BUN Creatinine Est GFR ( Amer) Est GFR (Non-Af Amer) Glucose POC Glucose 256 H Lactic Acid Calcium Total Bilirubin Direct Bilirubin AST ALT Alkaline Phosphatase Ammonia Creatine Kinase CK-MB (CK-2) Troponin I Total Protein Albumin Urine Color Urine Appearance Urine pH Ur Specific [place] Urine Protein Urine Glucose (UA) Urine Ketones Urine Blood Urine Nitrite Urine Bilirubin Urine Urobilinogen Ur Leukocyte Esterase Urine WBC (Auto) Urine RBC (Auto) U Hyaline Cast (Auto) Urine Bacteria (Auto) Amorphous Sediment Auto Urine Mucus (Auto) Urine Yeast (Budding) Urine Ascorbic Acid 08/01/18 08/01/18 08/01/18 18:07 18:07 18:07 WBC RBC Hgb Hct MCV MCH MCHC RDW Plt Count Total Counted Seg Neuts % (Manual) Lymphocytes % (Manual) Eosinophils % (Manual) Basophils % (Manual) Immature Leukocytes % Abs Neuts (Manual) Abs Lymphs (Manual) Abs Monocytes (Manual) Toxic Granulation Toxic Vacuolation Polychromasia Poikilocytosis Anisocytosis Helmet Cells PT INR VBG pH 7.16 L* VBG pCO2 39.7 VBG HCO3 13.9 L VBG Base Excess -14.1 Sodium 132.5 L Potassium 6.3 H* Chloride 100 Carbon Dioxide 15 L Anion Gap 18 BUN 64 H Creatinine 3.85 H Est GFR ( Amer) 14 L Est GFR (Non-Af Amer) 12 L Glucose 227 H POC Glucose Lactic Acid Calcium 7.6 L Total Bilirubin 8.1 H Direct Bilirubin 7.4 H AST 1708 H ALT 614 H Alkaline Phosphatase 270 H Ammonia Creatine Kinase 370 H CK-MB (CK-2) 12.30 H Troponin I 0.443 Total Protein 6.3 Albumin 2.8 L Urine Color Urine Appearance Urine pH Ur Specific [place] Urine Protein Urine Glucose (UA) Urine Ketones Urine Blood Urine Nitrite Urine Bilirubin Urine Urobilinogen Ur Leukocyte Esterase Urine WBC (Auto) Urine RBC (Auto) U Hyaline Cast (Auto) Urine Bacteria (Auto) Amorphous Sediment Auto Urine Mucus (Auto) Urine Yeast (Budding) Urine Ascorbic Acid 08/01/18 08/01/18 08/01/18 18:07 18:27 18:47 WBC RBC Hgb Hct MCV MCH MCHC RDW Plt Count Total Counted Seg Neuts % (Manual) Lymphocytes % (Manual) Eosinophils % (Manual) Basophils % (Manual) Immature Leukocytes % Abs Neuts (Manual) Abs Lymphs (Manual) Abs Monocytes (Manual) Toxic Granulation Toxic Vacuolation Polychromasia Poikilocytosis Anisocytosis Helmet Cells PT INR VBG pH VBG pCO2 VBG HCO3 VBG Base Excess Sodium Potassium Chloride Carbon Dioxide Anion Gap BUN Creatinine Est GFR ( Amer) Est GFR (Non-Af Amer) Glucose POC Glucose Lactic Acid 4.2 H Calcium Total Bilirubin Direct Bilirubin AST ALT Alkaline Phosphatase Ammonia < 8.7 L Creatine Kinase CK-MB (CK-2) Troponin I Total Protein Albumin Urine Color DARK YELLOW Urine Appearance CLOUDY Urine pH 5.0 Ur Specific [place] 1.017 Urine Protein 30 H Urine Glucose (UA) NEGATIVE Urine Ketones NEGATIVE Urine Blood SMALL H Urine Nitrite NEGATIVE Urine Bilirubin SMALL H Urine Urobilinogen 4.0 H Ur Leukocyte Esterase NEGATIVE Urine WBC (Auto) 6 Urine RBC (Auto) 4 U Hyaline Cast (Auto) 1 Urine Bacteria (Auto) TRACE Amorphous Sediment Auto TRACE Urine Mucus (Auto) RARE Urine Yeast (Budding) PRESENT Urine Ascorbic Acid NEGATIVE Impressions: Chest X-Ray 08/01/18 00:00 IMPRESSION: Minimal airspace disease in the periphery of the left upper lobe. This could represent a small focus of pneumonia. Pulmonary infarct could not be excluded. Large main pulmonary artery worrisome for pulmonary hypertension No acute infiltrates. Assessment & Plan - Diagnosis (1) Pancreatic cancer metastasized to liver Is this a current diagnosis for this admission?: Yes Plan: End stage pancreatic cancer with metastasis to the liver with multiorgan failure. Patient will be admitted for comfort measures, is at the bedside and agrees with the plan. Patient will be on oxygen via nasal cannula, IV opioids as needed, IV antiemetics as needed, scopolamine patch and other medications she would need to be comfortable. from the oncology department is aware and agrees with the plan. - Time Time Spent: 30 to 50 Minutes
[2018-08-01] MEDS ORDERED: SCOPOLAMINE HYDROBROMIDE 1.5 MG PATCH.TD72 ONE (21:41)
[2018-08-01] MEDS ORDERED: PANTOPRAZOLE SODIUM 40 MG VIAL IV ONE (22:00)
[2018-08-02] MEDS: HYDROMORPHONE HCL INJ/PF 2 MG/ML AMPULE IV PRN ×2 (04:22→05:51)
--- NOTE | 2018-08-02 09:05 | Physician Advisory Note ---
Physician Advisor ProgressNote .: [facility] I have reviewed the medical record for this patient. Physician Advisor Statement: Nice documentation of comfort measures plan. Pt w/ANNE, acute liver failure, acute resp failure w/profound leukocytosis & suspected infiltrate on CXR, elevated trop I w/new RBBB & prolonged QT, .... Please consider documenting, if you agree: 1. "Acute Hypoxemic Respiratory Failure, suspect due to " (?"possible pneumonia- suspect gram-neg given COPD", or "lung mets", or ...?) 2. "acute metabolic encephalopathy due to " (mult lyte derangements, hypoxemia, hypotension, PNA, ...?) 3. ? " type shock, due to " ? (septic? hypovolemic? cardiovascular? ...) (If suspect septic shock, please specify A. "present on adm" or not, & B. which organ system failures (encephalop/hypotension/Ac Resp Failure/ ANNE/liver failure) are due to sepsis, vs due to CA/mets or other processes) 4. "Probable Pulmonary HTN" (per CXR) 5. "Possible NSTEMI, suspect ____ wall & ___ artery based on EKG" (or other specific cardiac dx: "demand ischemia w/o infarction", or ...) 6. "Acute hyponatremia, suspect due to " (?severe dehydration?) Status: Appropriate to make this Medicare pt Obs initially if expecting imminent before 2 MNs in hospital. (If attg expected sometime in next few days, but not necessarily w/in hrs, then would be appropriate to make Inpt from the beginning.) - However, she is severely ill, & now has been cared for in hospital for 1 MN already. If she survives through the PM today, she should be changed to Inpatient as soon as it becomes clear she will still be in hospital and alive at MN tonight. (A nurse order such as "Change to INpt status at 12MN tonight" should take care of this, if there is doubt as to whether or not she will survive to MN.) Thanks! CK
--- NOTE | 2018-08-02 19:49 | Death Summary ---
Summary Date : 08/02/18 Time of :: 07:15 Autopsy: No Resuscitation Status: Comfort Measures Only Primary Care Provider: MANUEL BO MD - Final Diagnosis (1) Pancreatic cancer metastasized to liver Is this a current diagnosis for this admission?: Yes (2) Acute renal failure Is this a current diagnosis for this admission?: Yes Hospital Course:: ASPEN BAUGH is a 68 year old female who has been recently diagnosed with stage IV pancreatic cancer with metastasis to the liver. She was confused and only oriented to herself in the ED. she was also noted to be very somnolent falling asleep in mid-conversation. She was placed on BiPAP with initial improvement. On her emergency room physical evaluation the patient was noted to icteric, laboratory evaluations were dramatically abnormal; at this point the ED attending physician Dr. Aguilera went to speak with the family/ at the bedside and with over the phone. He concluded that the patient was actively dying. As the patient was recently diagnosed her was resistant to making her comfort measures only, it was explained that she was is in multisystem organ failure with rapid deterioration. It was further explained that this condition is irreversible and in her case included, renal, hepatic, cardiovascular and neurological systems were involved. Additionally it was explained that unfortunately there was not much that we could do for her except keep her comfortable. Once her understood the situation he decided to make her DO NOT RESUSCITATE and comfort measures only. desired to admit her for during her last hours of life and not keep her in the emergency department. This wish was granted and the patient was admitted to the medical floor for comfort measures and care for the actively dying. This allowed that her last hours could be pain-free, yet allowing for her human dignity. She at 7:15 AM on 08/02/2018.
[2018-08-03 14:47] LABS: PATH REVIEW PATHOLOGIST REVIEWED
[2018-08-04 15:23] LABS: SEGMENTED NEUTROPHILS % (MAN) 75 % (42-78)
[2018-08-04 15:24] LABS: ABSOLUTE NEUTROPHILS# (MANUAL) 18.7 10^3/uL (1.7-8.2)
== END 2018-08-02 11:17 | disposition expired ==
LOC: ER 17:18 → INTOOBSV 20:35 → EH 20:35 → 4N 21:56
PROVIDERS: ADMIT Internal Medicine; ATTEND Internal Medicine
DX: C25.9 Malignant neoplasm of pancreas, unspecified (principal); C78.7 Secondary malignant neoplasm of liver and intrahepatic bile duct; R41.0 Disorientation, unspecified; R40.0 Somnolence; N17.9 Acute kidney failure, unspecified; K72.90 Hepatic failure, unspecified without coma; Z66 Do not resuscitate; Z51.5 Encounter for palliative care; J44.9 Chronic obstructive pulmonary disease, unspecified; I95.9 Hypotension, unspecified; R09.02 Hypoxemia; R06.82 Tachypnea, not elsewhere classified; I45.10 Unspecified right bundle-branch block; I45.81 Long QT syndrome; R17 Unspecified jaundice; G89.3 Neoplasm related pain (acute) (chronic); E78.5 Hyperlipidemia, unspecified; E11.9 Type 2 diabetes mellitus without complications; F17.210 Nicotine dependence, cigarettes, uncomplicated; Z80.0 Family history of malignant neoplasm of digestive organs; Z85.3 Personal history of malignant neoplasm of breast; Z79.899 Other long term (current) drug therapy; Z82.49 Family history of ischemic heart disease and other diseases of the circulatory system
CPT/HCPCS: 93005; 99291; 99292; 96361; 96374; 36415; 82553; 82962; 82140; 82550; 85025; 85610; 80053; 81001; 84484; 82803; 83605; 71045; 93010; 94660; G0378 ×3; J1630; J1170 ×2; C9113; J7030; S0164